=== PATIENT | female | born 1965 | race Caucasian/White ===

== ENCOUNTER 2018-11-22 08:08 | Day surgery (SDC) | payer OTHER ==
[2018-11-21 10:33] VITALS: BMI 20.6
[2018-11-22 10:35] VITALS: BP 118/68; PULSE 68; TEMP 98.3
== END 2018-11-22 10:36 | disposition home or self-care (01) ==
LOC: JASU-ENDO 08:08
PROVIDERS: ATTEND Internal Medicine Gastroenterology
PROC: 0DJD8ZZ Inspection of Lower Intestinal Tract, Via Natural or Artificial Opening Endoscopic (ICD-10-PCS; principal; 2018-11-22 09:00)
DX: Z12.11 Encounter for screening for malignant neoplasm of colon (principal); K57.30 Diverticulosis of large intestine without perforation or abscess without bleeding
CPT/HCPCS: 84703

== ENCOUNTER 2019-02-17 03:26 | Inpatient (IN) | payer OTHER ==
[2019-02-17 03:34] VITALS: BMI 20.7
--- NOTE | 2019-02-17 03:38 | PDOC ---
History of Present Illness - General Chief Complaint: Pain, Acute Stated Complaint: BLOATING,CRAMPING SINCE SUNDAY Time Seen by Provider: 02/17/19 03:34 History Source: Patient Exam Limitations: No Limitations - History of Present Illness Initial Comments: 02/17/19 03:34 53 yo F h/o diverticulosis here with c/o low abd pain, cramping, intermittent. pain with having a bm. no diarrhea. did have nausea, no f/c no urinary complaints. no prior abd surgeries. did have a routine colonoscopy one month ago , no flank pain. last bm today. Past History - Past Medical History Allergies/Adverse Reactions: Allergies Allergy/AdvReac Type Severity Reaction Status Date / Time Penicillins Allergy Verified 02/17/19 10:56 Home Medications: Ambulatory Orders Fluticasone/Vilanterol [Breo Ellipta 100-25 Mcg INH] 100 mcg DAILY 11/21/18 Sumatriptan Succinate [Imitrex -] 25 mg PO DAILY 11/21/18 Asthma: Yes (NO RECENT ATTACK) Cardiac Disorders: Yes (MVP) COPD: No GI Disorders: Yes (DIVERTICULOSIS, HIATAL HERNIA) - Suicide/Smoking/Psychosocial Hx Smoking Status: No Smoking History: Never smoked Have you smoked in the past 12 months: No Number of Cigarettes Smoked Daily: 0 Information on smoking cessation initiated: No Hx Alcohol Use: No Drug/Substance Use Hx: No Substance Use Type: None Hx Substance Use Treatment: No Review of Systems - Review of Systems Constitutional: No: Chills, Diaphoresis, Fever HEENTM: No: Eye Pain, Blurred Vision Respiratory: No: Cough, Orthopnea Cardiac (ROS): No: Chest Pain, Edema ABD/GI: Yes: Abd. Pain w/ defecation : No: Burning, Dysuria, Discharge Musculoskeletal: No: Back Pain, Gout Psychiatric: No: Frequent Crying, Stressors, Sleep Pattern Change All Other Systems: Reviewed and Negative *Physical Exam - Vital Signs Last Vital Signs Temp Pulse Resp BP Pulse Ox 98.8 F 95 H 16 134/77 100 02/17/19 03:31 02/17/19 03:31 02/17/19 03:31 02/17/19 03:31 02/17/19 03:31 - Physical Exam Comments: 02/17/19 03:36 awake alert NAD lungs ctab heart rrr no mrg abd soft mild rlq suprapubic ttp. positive rebound no guarding. no cva tenderness. skin warm and dry nuero alert oriented x 3. General Appearance: No: Appropriately Dressed, Apparent Distress ED Treatment Course - LABORATORY CBC & Chemistry Diagram: 02/18/19 06:15 02/18/19 06:15 Medical Decision Making - Medical Decision Making 02/17/19 03:37 53 yo F with lower abd pain , cramping and pain with bm. ttp on rlq on exam. differential constipation, ileitis, gas, appendicitis, divericulitis right sided ovarian cyst. plan ct a/p labs ua. *DC/Admit/Observation/Transfer Diagnosis at time of Disposition: Bowel perforation - Discharge Dispostion Condition at time of disposition: Stable Decision to Admit order: Yes - Referrals - Patient Instructions - Post Discharge Activity
[2019-02-17] MEDS ORDERED: SODIUM CHLORIDE 0.9% 1000 ML INFUS.BAG IV ONE (03:40)
[2019-02-17] MEDS ORDERED: ACETAMINOPHEN 1000 MG/100 ML VIAL (NON FORMULARY) IVPB ONE (04:07)
[2019-02-17 04:44] LABS: BASO % 0.4 % (0-2.0); EOS % 2.2 % (0-4.5); HEMATOCRIT 41.3 % (32.4-45.2); HEMOGLOBIN 13.9 GM/dL (10.7-15.3); LYMPH % 10.9 % (8-40); MCH 29.3 pg (25.7-33.7); MCHC 33.6 g/dl (32.0-36.0); MEAN CELL VOLUME 87.2 fl (80-96); MEAN PLT VOLUME 9.5 fl (7.5-11.1); NEUT % 80.5 % (42.8-82.8); PLATELET COUNT 167 K/MM3 (134-434); RBC 4.74 M/mm3 (3.60-5.2); RDW 13.4 % (11.6-15.6); WHITE BLOOD COUNT 10.6 K/mm3 (4.0-10.0)
[2019-02-17 04:54] LABS: EPITHELIAL CELLS RARE /hpf
[2019-02-17 04:55] LABS: ALBUMIN 4.3 g/dl (3.4-5.0); BILIRUBIN,TOTAL 1.5 mg/dL (0.2-1); BLOOD UREA NITROGEN 19.9 mg/dL (7-18); CALCIUM 9.3 mg/dL (8.5-10.1); CREATININE 0.9 mg/dL (0.55-1.3); POTASSIUM 3.8 mmol/L (3.5-5.1); TOT PROT 7.6 g/dl (6.4-8.2)
[2019-02-17] MEDS ORDERED: ONDANSETRON 4 MG/2 ML VIAL IVPUSH ONE (05:03)
[2019-02-17] MEDS ORDERED: ONDANSETRON 4 MG/2 ML VIAL ONE (05:03)
[2019-02-17] MEDS ORDERED: MEROPENEM 1 GM in DEXTROSE 5%-WATER 100 ML IVPB ONE (07:22)
--- NOTE | 2019-02-17 07:31 | PDOC ---
*Physical Exam - Vital Signs Last Vital Signs Temp Pulse Resp BP Pulse Ox 98.8 F 95 H 16 134/77 100 02/17/19 03:31 02/17/19 03:31 02/17/19 03:31 02/17/19 03:31 02/17/19 03:31 ED Treatment Course - LABORATORY CBC & Chemistry Diagram: 02/17/19 03:58 02/17/19 03:58 - ADDITIONAL ORDERS Additional order review: Laboratory Results 02/17/19 02/17/19 03:58 03:58 Sodium 140 Potassium 3.8 Chloride 105 Carbon Dioxide 31 Anion Gap 4 L BUN 19.9 H Creatinine 0.9 Est GFR (CKD-EPI)AfAm 83.43 Est GFR (CKD-EPI)NonAf 71.98 Random Glucose 82 Calcium 9.3 Total Bilirubin 1.5 H AST 24 ALT 27 Alkaline Phosphatase 59 Total Protein 7.6 Albumin 4.3 Urine Color Yellow Urine Appearance Clear Urine pH 5.5 Urine Protein N Urine Glucose (UA) Negative Urine Ketones Negative Urine Blood Negative Urine Nitrite Negative Urine Bilirubin Negative Urine Urobilinogen 0.02 Ur Leukocyte Esterase 1+ Urine RBC 0-2 Urine WBC 10-12 Ur Transition Epith Cell Rare Urine Bacteria Few 02/17/19 03:58 RBC 4.74 MCV 87.2 MCHC 33.6 RDW 13.4 MPV 9.5 Neutrophils % 80.5 D Lymphocytes % 10.9 D Monocytes % 6.0 Eosinophils % 2.2 Basophils % 0.4 - Medications Given in the ED: ED Medications Discontinued Medications Generic Name Dose Route Start Last Admin Trade Name Freq PRN Reason Stop Dose Admin Acetaminophen 1,000 mg 02/17/19 04:07 02/17/19 04:15 Ofirmev Injection - IVPB 02/17/19 04:08 1,000 mg ONCE ONE Administration Ondansetron HCl 4 mg 02/17/19 05:03 02/17/19 05:09 Zofran Injection IVPUSH 02/17/19 05:04 4 mg ONCE ONE Administration Sodium Chloride 1,000 ml 02/17/19 03:40 02/17/19 03:55 Normal Saline - IV 02/17/19 03:41 1,000 ml ONCE ONE Administration Medical Decision Making - Critical Care Time Total Critical Care Time (minutes): 60 Critical Care Statement: The care of this patient involved high complexity decision making to prevent further life threatening deterioration of the patient 's condition and/or to evaluate & treat vital organ system(s) failure or risk of failure. - Medical Decision Making 02/17/19 07:25 Sign out received from Dr. Claros at 7am Pt is 53 y/o F with h/o diverticulosis who presents to ED with 2 days of abdominal pain. CT read at 7:14 - shows free air, bowel perforation. ?sigmoid diverticulitis. Results communicated to Dr. Paige, who requests transfer to [facility] Will admit under Dr. Paige, to OR Meropenem ordered (pt is pen-allergic) *DC/Admit/Observation/Transfer Diagnosis at time of Disposition: Bowel perforation - Discharge Dispostion Condition at time of disposition: Stable Decision to Admit order: Yes - Referrals Referrals: Romario Edmond MD [Primary Care Provider] - - Patient Instructions - Post Discharge Activity - Attestations Physician Attestion: 02/17/19 08:05 I, Dr. Killian Martinez MD, attest that this document has been prepared under my direction and personally reviewed by me in its entirety. I further attest, that it accurately reflects all work, treatment, procedures and medical decision -making performed by me.
[2019-02-17] MEDS ORDERED: SODIUM CHLORIDE 1,000 ML IV SCH (07:45)
--- NOTE | 2019-02-17 12:18 | HP ---
Admitting History and Physical - Admission Chief Complaint: lower abdominal pain History of Present Illness: 53 yo female PMH Asthma on monotherarpy last attack 1 years ago, diverticulosis and chronic constipation here with complaints of lower abdominal pain, cramping , intermittent for 2 days. Pain started Sunday was worsening over Sunday and was reported to be much more severe with passing a bm. no diarrhea. did have nausea, no urinary complaints. no prior abdominal surgeries. She did have a routine colonoscopy one month ago, no flank pain. last bm today. We were called to assess after a CT scan showed pelvic pneumoperitonium. History Source: Patient, Medical Record Limitations to Obtaining History: No Limitations - Past Medical History Pulmonary: Yes: Asthma Gastrointestinal: Yes: Diverticulosis - Advance Directives Advance Directives: Yes: Health Care Proxy - Smoking History Smoking history: Never smoked Have you smoked in the past 12 months: No Aproximately how many cigarettes per day: 0 - Alcohol/Substance Use Hx Alcohol Use: No History of Substance Use: reports: None - Social History Usual Living Arrangement: Yes: With Spouse ADL: Independent History of Recent Travel: No Home Medications - Allergies Allergies/Adverse Reactions: Allergies Allergy/AdvReac Type Severity Reaction Status Date / Time Penicillins Allergy Verified 02/17/19 10:56 - Home Medications Home Medications: Ambulatory Orders Fluticasone/Vilanterol [Breo Ellipta 100-25 Mcg INH] 100 mcg DAILY 11/21/18 Sumatriptan Succinate [Imitrex -] 25 mg PO DAILY 11/21/18 Review of Systems - Review of Systems Constitutional: denies: Chills, Fever Eyes: denies: Blurred Vision, Recent Change in Vision HENT: denies: Difficult Swallowing, Throat Pain Neck: denies: Decreased ROM, Tenderness Cardiovascular: denies: Chest Pain, Palpitations Respiratory: denies: Cough, SOB Gastrointestinal: reports: Abdominal Pain, Constipation. denies: Bloating, Diarrhea, Dysphagia Genitourinary: denies: Burning, Discharge, Dysuria Breasts: reports: No Symptoms Reported. denies: Pain, Skin Changes Musculoskeletal: denies: Back Pain, Muscle Pain Integumentary: denies: Change in Color, Eczema, Pruritis Neurological: denies: Seizure, Syncope Endocrine: denies: Unexplained Weight Gain, Unexplained Weight Loss Hematology/Lymphatic: denies: Easily Bruised, Excessive Bleeding Psychiatric: denies: Anxiety, Depression Physical Examination Vital Signs: Vital Signs Temperature 98.2 F 02/17/19 10:44 Pulse Rate 94 H 02/17/19 10:44 Respiratory Rate 16 02/17/19 10:44 Blood Pressure 113/48 L 02/17/19 10:44 O2 Sat by Pulse Oximetry (%) 100 02/17/19 10:40 Constitutional: Yes: Well Nourished, No Distress, Calm Eyes: Yes: Conjunctiva Clear, EOM Intact HENT: Yes: Atraumatic, Normocephalic Neck: Yes: Supple, Trachea Midline Cardiovascular: Yes: Regular Rate and Rhythm, S1, S2 Respiratory: Yes: Regular, CTA Bilaterally Gastrointestinal: Yes: Normal Bowel Sounds, Soft, Tenderness, Tenderness, Rebound. No: Distention, Palpable Mass, Tenderness, Epigastrium ...Rectal Exam: Yes: Sphincter Tone Normal. No: Hemorrhoids/External, Mass Renal/: No: CVA Tenderness - Left, CVA Tenderness - Right Breast(s): No: Discharge from Nipple, Nipple Inversion Musculoskeletal: No: Muscle Pain, Muscle Weakness Extremities: No: Cool, Cyanosis Edema: No Peripheral Pulses WNL: Yes Peripheral Pulses: Left Radial: 2+, Right Radial: 2+, Left Doralis Pedis: 2+, Right Dorsalis Pedis: 2+, Left Femoral: 2+, Right Femoral: 2+ Integumentary: No: Jaundice, Laceration Neurological: Yes: Alert, Oriented Psychiatric: Yes: Alert, Oriented Labs: CBC, BMP 02/17/19 03:58 02/17/19 03:58 Imaging - Results Cat Scan: Report Reviewed, Image Reviewed (bubles of extraluminal gas) EKG: Report Reviewed, Image Reviewed Problem List - Problems (1) Intra-abdominal free air of unknown etiology Assessment/Plan: 53yo with free air on imaging and lower abdominal pain with early peritonitus and history of diverticulosis on screening colonoscopy NPO and IVF hydration IV antibiotucs ID consult OR for Exploratory lapartomy, possible bowel ressection, possible ostomy, possible omental patch Discussed with patient risks, benefits and alternatives of aforemention procedure, including but not limited to bleeding, infection, injury to adjacent structures, leak or injury, intraabdominal abscess, incisional hernia, need for further procedures, ; alternatives include antibiotics, delayed or no surgery - risks of this include failure of nonoperative therapy, perforation, sepsis, recurrence, . Patient desires to proceed with operation - will take to OR for above. Informed consent signed for same. Code(s): K66.8 - OTHER SPECIFIED DISORDERS OF PERITONEUM (2) Abdominal pain in female Code(s): R10.9 - UNSPECIFIED ABDOMINAL PAIN (3) Asthma Code(s): J45.909 - UNSPECIFIED ASTHMA, UNCOMPLICATED Qualifiers: Asthma severity: mild Asthma persistence: intermittent Asthma complication type: uncomplicated Qualified Code(s): J45.20 - Mild intermittent asthma, uncomplicated (4) Leukocytosis Code(s): D72.829 - ELEVATED WHITE BLOOD CELL COUNT, UNSPECIFIED Qualifiers: Leukocytosis type: bandemia Qualified Code(s): D72.825 - Bandemia (5) Diverticulosis Code(s): K57.90 - DVRTCLOS OF INTEST, PART UNSP, W/O PERF OR ABSCESS W/O BLEED
[2019-02-17] MEDS ORDERED: morphine CARPU-JECT 2 MG/1 ML DISP.SYRIN IVPUSH PRN (12:37)
[2019-02-17] MEDS ORDERED: ALBUTEROL SO4 0.083% IH SOL 2.5 MG/3 ML VIAL.NEB. NEB PRN ×2 (12:37→17:14)
[2019-02-17] MEDS ORDERED: ONDANSETRON 4 MG/2 ML VIAL IVPUSH PRN ×3 (12:37→15:43)
--- NOTE | 2019-02-17 12:37 | OP ---
Operative Note - Note: Operative Date: 02/17/19 Pre-Operative Diagnosis: perforated viscus Operation: maria elena's procedure Findings: stercoral erosion mid sigmoid anti-mesenteric boarder 3cm, end colostomy fashioned Post-Operative Diagnosis: Other (Stercoral erosion anti-mesenteric) Surgeon: Carlos aPige Diver Tender: Favian Lino Anesthesiologist/YARD COUPLER: Claudia De León Anesthesia: General Estimated Blood Loss (mls): 50 Fluid Volume Replaced (mls): 1,200 (crystalloid ) Operative Report Dictated: Yes
[2019-02-17] MEDS ORDERED: LACTATED RINGERS SOLUTION 1,000 ML IV SCH ×2 (12:45→15:45)
[2019-02-17 12:54] LABS: INR 1.1 (0.83-1.09)
[2019-02-17] MEDS ORDERED: PIPERACILLIN/TAZOB 4.5 GM 4.5 GM in DEXTROSE 5%-WATER 100 ML IVPB ONE (13:00)
[2019-02-17] MEDS ORDERED: diphenhydrAMINE HCL 25 MG CAPSULE (FP) PO PRN ×2 (14:18→17:14)
[2019-02-17] MEDS ORDERED: fentaNYL CITRATE 250 MCG/5 ML VIAL ONE (14:22)
[2019-02-17] MEDS ORDERED: PROPOFOL 20 ML ONE ×2 (14:22)
[2019-02-17] MEDS ORDERED: SUCCINYLCHOLINE CHLORIDE 200 MG/10 ML SYRINGE ONE ×2 (14:22)
[2019-02-17] MEDS ORDERED: ROCURONIUM BROMIDE 50 MG/5 ML SYRINGE ONE (14:23)
[2019-02-17] MEDS ORDERED: LIDOCAINE HCL/PF 2% SDV 5ML VIAL ONE (14:23)
[2019-02-17] MEDS ORDERED: HYDROmorphone HCl 2 MG/ML VIAL ONE ×3 (15:03)
[2019-02-17] MEDS ORDERED: DEXAMETHASONE SOD PHOSPHATE 4 MG/1 ML VIAL ONE (15:17)
--- NOTE | 2019-02-17 15:17 | EKG ---
Test Reason : Blood Pressure : / mmHG Vent. Rate : 077 BPM Atrial Rate : 077 BPM P-R Int : 120 ms QRS Dur : 086 ms QT Int : 408 ms P-R-T Axes : 039 062 062 degrees QTc Int : 461 ms NORMAL SINUS RHYTHM NORMAL ECG NO PREVIOUS ECGS AVAILABLE Confirmed by PRISCILLA STAUFFER MD ([id number]) on 02/17/2019 3:16:36 PM Referred By: Confirmed By:PRISCILLA STAUFFER MD
[2019-02-17] MEDS ORDERED: NEOSTIGMINE METHYLSULFATE 0.5 MG/ML - 10 ML MDV ONE (15:28)
[2019-02-17] MEDS ORDERED: PROMETHAZINE HCL 25 MG/1 ML VIAL IVPUSH PRN (15:41)
[2019-02-17] MEDS ORDERED: GLYCOPYRROLATE 0.2 MG/1 ML VIAL ONE (16:08)
[2019-02-17] MEDS ORDERED: HYDROmorphone *PCA* 10MG/50ML DISP.SYRIN ONE (17:01)
[2019-02-17] MEDS: LACTATED RINGERS SOLUTION 1,000 ML/1,000 ML INFUS.BAG IV SCH (17:30)
[2019-02-17] MEDS: HYDROmorphone *PCA* 10MG/50ML DISP.SYRIN IV SCH (17:30)
[2019-02-18] MEDS ORDERED: ONDANSETRON 4 MG/2 ML VIAL ONE (07:36)
[2019-02-18 07:49] LABS: HEMATOCRIT 36.6 % (32.4-45.2); HEMOGLOBIN 12.4 GM/dL (10.7-15.3); LYMPH % 3.4 % (8-40); MCH 29.1 pg (25.7-33.7); MEAN CELL VOLUME 85.7 fl (80-96); MEAN PLT VOLUME 9.4 fl (7.5-11.1); MONO % 5.8 % (3.8-10.2); NEUT % 90.8 % (42.8-82.8); PLATELET COUNT 127 K/MM3 (134-434); RBC 4.27 M/mm3 (3.60-5.2)
[2019-02-18] MEDS: HYDROmorphone *PCA* 10MG/50ML DISP.SYRIN IV SCH (08:01)
[2019-02-18 08:07] LABS: ALBUMIN 3.2 g/dl (3.4-5.0); BILIRUBIN,TOTAL 1.1 mg/dL (0.2-1); BLOOD UREA NITROGEN 12.2 mg/dL (7-18); CALCIUM 8.5 mg/dL (8.5-10.1); CREATININE 0.7 mg/dL (0.55-1.3); POTASSIUM 4.2 mmol/L (3.5-5.1); TOT PROT 6.2 g/dl (6.4-8.2)
[2019-02-18] MEDS: LACTATED RINGERS SOLUTION 1,000 ML/1,000 ML INFUS.BAG IV SCH ×2 (11:24→17:17)
[2019-02-18] MEDS: ONDANSETRON 4 MG/2 ML VIAL IVPUSH PRN ×2 (11:24→15:14)
--- NOTE | 2019-02-18 11:33 | PN ---
Progress Note, Physician Chief Complaint: Abdominal pain History of Present Illness: 53 yo female PMH Asthma on monotherarpy last attack 1 years ago, diverticulosis and chronic constipation here with complaints of lower abdominal pain, cramping , intermittent for 2 days. She has been stable post operatively. She has been expressing feeling upset about having the ostomy. - Current Medication List Current Medications: Active Medications Albuterol Sulfate (Ventolin 0.083% Nebulizer Soln -) 1 amp NEB Q6H PRN PRN Reason: SHORT OF BREATH/WHEEZING Diphenhydramine HCl (Benadryl -) 50 mg PO HS PRN PRN Reason: INSOMNIA Fentanyl (Sublimaze Injection -) 50 mcg IVPUSH [id number] PRN PRN Reason: PAIN-PACU ORDER X 4 DOSES ONLY Hydromorphone HCl (Hydromorphone 10 Mg/50 Ml-Ns) 10 mg IV PSYCHOLOGIST COUNSELING MARIN; Protocol Stop: 02/18/19 15:44 Last Admin: 02/18/19 08:01 Dose: Not Given Lactated Ringer's (Lactated Ringers Solution) 1,000 ml in 1,000 mls @ 125 mls/ hr IV ASDIR MARIN Last Admin: 02/18/19 11:24 Dose: 125 mls/hr Metronidazole (Flagyl 250mg Premixed Ivpb -) 250 mg in 50 mls @ 50 mls/hr IVPB Q8H-IV MARIN Last Admin: 02/18/19 07:59 Dose: Not Given Ondansetron HCl (Zofran Injection) 4 mg IVPUSH Q4H PRN PRN Reason: NAUSEA AND/OR VOMITING Last Admin: 02/18/19 11:24 Dose: 4 mg - Objective Vital Signs: Vital Signs Temperature 98.3 F 02/18/19 06:25 Pulse Rate 114 H 02/18/19 06:25 Respiratory Rate 20 02/18/19 06:25 Blood Pressure 130/72 02/18/19 06:25 O2 Sat by Pulse Oximetry (%) 99 02/17/19 19:10 Vital Signs Period Temp Pulse Resp BP Sys/Lombardi Pulse Ox Last 24 Hr 97.8 F-99.1 F 84-98 18-20 112-127/64-77 Intake & Output 02/18/19 02/19/19 02/19/19 23:59 07:59 15:59 Intake Total 300 Output Total 600 1550 Balance -300 -1550 Intake: IV 300 LACTATED RINGERS SOLUTION 300 1,000 ml In 1,000 ml @ 125 mls/hr IV [facility] Rx#:[id number] Output: Gastric Drainage 0 Urine 600 1550 Gupta 600 1550 Colostomy 0 Other: Voiding Method Indwelling Catheter Indwelling Catheter Constitutional: Yes: Well Nourished, No Distress, Calm Eyes: Yes: Conjunctiva Clear, EOM Intact HENT: Yes: Atraumatic, Normocephalic Neck: Yes: Supple, Trachea Midline Cardiovascular: Yes: Regular Rate and Rhythm, S1, S2 Respiratory: Yes: Regular, CTA Bilaterally Gastrointestinal: Yes: Normal Bowel Sounds, Soft, Tenderness (incisional), Other (colostomy). No: Distention ...Rectal Exam: Yes: Deferred Genitourinary: No: CVA Tenderness - Left, CVA Tenderness - Right Breast(s): No: Mass, Nipple Inversion Musculoskeletal: No: Muscle Pain, Muscle Weakness Extremities: No: Cool, Cyanosis Edema: No Peripheral Pulses WNL: Yes Peripheral Pulses: Left Radial: 2+, Right Radial: 2+, Left Doralis Pedis: 2+, Right Dorsalis Pedis: 2+, Left Femoral: 2+, Right Femoral: 2+ Wound/Incision: Yes: Clean/Dry, Well Approximated, Dressing Dry and Intact Neurological: Yes: Alert, Oriented Psychiatric: Yes: Alert, Oriented Labs: CBC, BMP 02/18/19 06:15 02/18/19 06:15 INR, PTT INR 1.10 (0.83-1.09) H 02/17/19 12:12 Problem List - Problems (1) Intra-abdominal free air of unknown etiology Assessment/Plan: 53yo with free air on imaging and lower abdominal pain with early peritonitus and history of diverticulosis on screening colonoscopy POD#1 s/p Nasreen's procedure for a stercoral perforation mid sigmoid with minimal contamination. I attempted to address her concerns and provide a time table for reversal of colostomy June 2019. continue NPO and IVF Physical therapy evaluation D/C gupta D/C ngt OOB encourage IS adequate pain control will follow Code(s): K66.8 - OTHER SPECIFIED DISORDERS OF PERITONEUM (2) Abdominal pain in female Code(s): R10.9 - UNSPECIFIED ABDOMINAL PAIN (3) Asthma Code(s): J45.909 - UNSPECIFIED ASTHMA, UNCOMPLICATED Qualifiers: Asthma severity: mild Asthma persistence: intermittent Asthma complication type: uncomplicated Qualified Code(s): J45.20 - Mild intermittent asthma, uncomplicated (4) Leukocytosis Code(s): D72.829 - ELEVATED WHITE BLOOD CELL COUNT, UNSPECIFIED Qualifiers: Leukocytosis type: bandemia Qualified Code(s): D72.825 - Bandemia (5) Diverticulosis Code(s): K57.90 - DVRTCLOS OF INTEST, PART UNSP, W/O PERF OR ABSCESS W/O BLEED
--- NOTE | 2019-02-18 13:58 | CON.ID ---
Consult Consult Specialty:: infectious diseases Referred by:: Reason for Consultation:: peritonitis,abd pain - History of Present Illness Chief Complaint: abd pain History of Present Illness: 53 yo female PMH Asthma, diverticulosis and chronic constipation admitted with complaints of lower abdominal pain, cramping, intermittent for 2 days. Pain started Sunday was worsening over Sunday and was reported to be much more severe with passing a bm. no diarrhea. did have nausea, no urinary complaints. no prior abdominal surgeries. She did have a routine colonoscopy one month ago, no flank pain. last bm today. patient was worked up found to have pneumoperitoneum patient was seen by surgery and patient and underwent surgery currently she has lot of abd pain but stable patient is c/o of lot of nausea - History Source History Provided By: Patient Limitations to Obtaining History: No Limitations - Past Medical History Pulmonary: Yes: Asthma Gastrointestinal: Yes: Diverticulosis - Alcohol/Substance Use Hx Alcohol Use: No History of Substance Use: reports: None - Smoking History Smoking history: Never smoked Have you smoked in the past 12 months: No Aproximately how many cigarettes per day: 0 - Social History ADL: Independent History of Recent Travel: No Home Medications - Allergies Allergies/Adverse Reactions: Allergies Allergy/AdvReac Type Severity Reaction Status Date / Time Penicillins Allergy Verified 02/17/19 10:56 - Home Medications Home Medications: Ambulatory Orders Fluticasone/Vilanterol [Breo Ellipta 100-25 Mcg INH] 100 mcg DAILY 11/21/18 Sumatriptan Succinate [Imitrex -] 25 mg PO DAILY 11/21/18 Review of Systems - Review of Systems Constitutional: reports: Other Eyes: reports: No Symptoms HENT: reports: No Symptoms Neck: reports: No Symptoms Cardiovascular: reports: No Symptoms Respiratory: reports: No Symptoms Gastrointestinal: reports: Abdominal Pain Genitourinary: reports: No Symptoms Breasts: reports: No Symptoms Reported Musculoskeletal: reports: No Symptoms Integumentary: reports: No Symptoms Neurological: reports: No Symptoms Endocrine: reports: No Symptoms Hematology/Lymphatic: reports: No Symptoms Psychiatric: reports: No Symptoms Physical Exam Vital Signs: Vital Signs Temperature 98.3 F 02/18/19 06:25 Pulse Rate 114 H 02/18/19 06:25 Respiratory Rate 20 02/18/19 06:25 Blood Pressure 130/72 02/18/19 06:25 O2 Sat by Pulse Oximetry (%) 99 02/17/19 19:10 Constitutional: Yes: Well Nourished, No Distress, Calm Eyes: Yes: Conjunctiva Clear HENT: Yes: Atraumatic, Normocephalic Neck: Yes: Supple, Trachea Midline Cardiovascular: Yes: Regular Rate and Rhythm Respiratory: Yes: Regular, CTA Bilaterally Gastrointestinal: Yes: Soft, Tenderness, Other (ng tube in place) Musculoskeletal: Yes: WNL Extremities: Yes: WNL Neurological: Yes: Alert, Oriented Psychiatric: Yes: Alert, Oriented Labs: CBC, BMP 02/18/19 06:15 02/18/19 06:15 Imaging - Results Chest X-ray: Report Reviewed, Image Reviewed Cat Scan: Report Reviewed, Image Reviewed Assessment/Plan Problem List - Problems (1) Intra-abdominal free air of unknown etiology Code(s): K66.8 - OTHER SPECIFIED DISORDERS OF PERITONEUM (2) Abdominal pain in female Code(s): R10.9 - UNSPECIFIED ABDOMINAL PAIN (3) Asthma Code(s): J45.909 - UNSPECIFIED ASTHMA, UNCOMPLICATED Qualifiers: Asthma severity: mild Asthma persistence: intermittent Asthma complication type: uncomplicated Qualified Code(s): J45.20 - Mild intermittent asthma, uncomplicated (4) Leukocytosis Code(s): D72.829 - ELEVATED WHITE BLOOD CELL COUNT, UNSPECIFIED Qualifiers: Leukocytosis type: bandemia Qualified Code(s): D72.825 - Bandemia (5) Diverticulosis Code(s): K57.90 - DVRTCLOS OF INTEST, PART UNSP, W/O PERF OR ABSCESS W/O BLEED plan abx npo hydration rest as per surgery monitor wbc
[2019-02-18] MEDS ORDERED: DEXTROSE 5%-WATER 100 ML IVPB ONE ×2 (15:08→17:37)
[2019-02-18] MEDS ORDERED: MEROPENEM 1 GM VIAL (RESTRICTED TO ID) IVPB ONE ×2 (15:08→17:37)
[2019-02-18] MEDS: MEROPENEM 1 GM in DEXTROSE 5%-WATER 100 ML IVPB SCH ×2 (15:25→18:11)
[2019-02-18] MEDS: ACETAMINOPHEN 1000 MG/100 ML VIAL (NON FORMULARY) IVPB PRN (17:43)
[2019-02-19] MEDS ORDERED: PT OWN MED DRAWER 7, Y5N ONE ×2 (02:10→21:27)
[2019-02-19] MEDS: MEROPENEM 1 GM in DEXTROSE 5%-WATER 100 ML IVPB SCH ×3 (02:17→18:04)
[2019-02-19] MEDS ORDERED: ACETAMINOPHEN 1000 MG/100 ML VIAL (NON FORMULARY) IVPB PRN (10:43)
[2019-02-19] MEDS ORDERED: BISACODYL 10 MG SUPP.RECT RC PRN (10:45)
[2019-02-19] MEDS ORDERED: MEROPENEM 1 GM VIAL (RESTRICTED TO ID) IVPB ONE ×2 (10:48→17:58)
[2019-02-19] MEDS ORDERED: DEXTROSE 5%-WATER 100 ML IVPB ONE ×2 (10:48→17:59)
--- NOTE | 2019-02-19 12:05 | PN ---
Progress Note, Physician History of Present Illness: stable feeling better - Current Medication List Current Medications: Active Medications Acetaminophen (Ofirmev Injection -) 1,000 mg IVPB Q6H PRN PRN Reason: PAIN LEVEL 1-5 Last Admin: 02/18/19 17:43 Dose: 1,000 mg Albuterol Sulfate (Ventolin 0.083% Nebulizer Soln -) 1 amp NEB Q6H PRN PRN Reason: SHORT OF BREATH/WHEEZING Bisacodyl (Dulcolax Suppository -) 10 mg RC DAILY PRN PRN Reason: CONSTIPATION Diphenhydramine HCl (Benadryl -) 50 mg PO HS PRN PRN Reason: INSOMNIA Fentanyl (Sublimaze Injection -) 50 mcg IVPUSH [id number] PRN PRN Reason: PAIN-PACU ORDER X 4 DOSES ONLY Lactated Ringer's (Lactated Ringers Solution) 1,000 ml in 1,000 mls @ 125 mls/ hr IV ASDIR MARIN Last Admin: 02/18/19 17:17 Dose: Not Given Meropenem 1 gm/ Dextrose 100 mls @ 200 mls/hr IVPB Q8H-IV MARIN Last Admin: 02/19/19 10:56 Dose: 200 mls/hr Ondansetron HCl (Zofran Injection) 4 mg IVPUSH Q4H PRN PRN Reason: NAUSEA AND/OR VOMITING Last Admin: 02/18/19 15:14 Dose: 4 mg - Objective Vital Signs: Vital Signs Temperature 98.2 F 02/19/19 06:53 Pulse Rate 93 H 02/19/19 06:53 Respiratory Rate 20 02/19/19 06:53 Blood Pressure 127/77 02/19/19 06:53 O2 Sat by Pulse Oximetry (%) 99 02/18/19 09:00 Constitutional: Yes: No Distress, Calm Cardiovascular: Yes: S1, S2 Respiratory: Yes: Regular, CTA Bilaterally Gastrointestinal: Yes: Soft, Hypoactive Bowel Sounds Musculoskeletal: Yes: WNL Extremities: Yes: WNL Neurological: Yes: Alert, Oriented Labs: CBC, BMP 02/18/19 06:15 02/18/19 06:15 INR, PTT INR 1.10 (0.83-1.09) H 02/17/19 12:12 Assessment/Plan Problem List - Problems (1) Intra-abdominal free air of unknown etiology Code(s): K66.8 - OTHER SPECIFIED DISORDERS OF PERITONEUM (2) Abdominal pain in female Code(s): R10.9 - UNSPECIFIED ABDOMINAL PAIN (3) Asthma Code(s): J45.909 - UNSPECIFIED ASTHMA, UNCOMPLICATED Qualifiers: Asthma severity: mild Asthma persistence: intermittent Asthma complication type: uncomplicated Qualified Code(s): J45.20 - Mild intermittent asthma, uncomplicated (4) Leukocytosis Code(s): D72.829 - ELEVATED WHITE BLOOD CELL COUNT, UNSPECIFIED Qualifiers: Leukocytosis type: bandemia Qualified Code(s): D72.825 - Bandemia (5) Diverticulosis Code(s): K57.90 - DVRTCLOS OF INTEST, PART UNSP, W/O PERF OR ABSCESS W/O BLEED plan abx hydration rest as per surgery monitor wbc
[2019-02-19] MEDS: ACETAMINOPHEN 1000 MG/100 ML VIAL (NON FORMULARY) IVPB PRN (12:12)
--- NOTE | 2019-02-19 12:46 | PN ---
Progress Note, Physician Chief Complaint: Abdominal pain History of Present Illness: 53 yo female PMH Asthma on monotherarpy last attack 1 years ago, diverticulosis and chronic constipation here with complaints of lower abdominal pain, cramping , intermittent for 2 days. She has been stable post operatively. She has been expressing feeling upset about having the ostomy. - Current Medication List Current Medications: Active Medications Acetaminophen (Ofirmev Injection -) 1,000 mg IVPB Q6H PRN PRN Reason: PAIN LEVEL 1-5 Last Admin: 02/19/19 12:12 Dose: 1,000 mg Albuterol Sulfate (Ventolin 0.083% Nebulizer Soln -) 1 amp NEB Q6H PRN PRN Reason: SHORT OF BREATH/WHEEZING Bisacodyl (Dulcolax Suppository -) 10 mg RC DAILY PRN PRN Reason: CONSTIPATION Diphenhydramine HCl (Benadryl -) 50 mg PO HS PRN PRN Reason: INSOMNIA Fentanyl (Sublimaze Injection -) 50 mcg IVPUSH [id number] PRN PRN Reason: PAIN-PACU ORDER X 4 DOSES ONLY Lactated Ringer's (Lactated Ringers Solution) 1,000 ml in 1,000 mls @ 125 mls/ hr IV ASDIR MARIN Last Admin: 02/18/19 17:17 Dose: Not Given Meropenem 1 gm/ Dextrose 100 mls @ 200 mls/hr IVPB Q8H-IV [facility] Last Admin: 02/19/19 10:56 Dose: 200 mls/hr Ondansetron HCl (Zofran Injection) 4 mg IVPUSH Q4H PRN PRN Reason: NAUSEA AND/OR VOMITING Last Admin: 02/18/19 15:14 Dose: 4 mg - Objective Vital Signs: Vital Signs Temperature 98.2 F 02/19/19 06:53 Pulse Rate 93 H 02/19/19 06:53 Respiratory Rate 20 02/19/19 06:53 Blood Pressure 127/77 02/19/19 06:53 O2 Sat by Pulse Oximetry (%) 99 02/18/19 09:00 Vital Signs Period Temp Pulse Resp BP Sys/Lombardi Pulse Ox Last 24 Hr 97.8 F-99.1 F 84-98 18-20 112-127/64-77 Intake & Output 02/18/19 02/19/19 02/19/19 23:59 07:59 15:59 Intake Total 300 Output Total 600 1550 Balance -300 -1550 Intake: IV 300 LACTATED RINGERS SOLUTION 300 1,000 ml In 1,000 ml @ 125 mls/hr IV ASDIR MARIN Rx#:[id number] Output: Gastric Drainage 0 Urine 600 1550 Gupta 600 1550 Colostomy 0 Other: Voiding Method Indwelling Catheter Indwelling Catheter Constitutional: Yes: Well Nourished, No Distress, Calm Eyes: Yes: Conjunctiva Clear, EOM Intact HENT: Yes: Atraumatic, Normocephalic Neck: Yes: Supple, Trachea Midline Cardiovascular: Yes: Regular Rate and Rhythm, S1, S2 Respiratory: Yes: Regular, CTA Bilaterally Gastrointestinal: Yes: Normal Bowel Sounds, Soft, Tenderness (incisional), Other (colostomy non functional) ...Rectal Exam: Yes: Deferred Genitourinary: No: CVA Tenderness - Left, CVA Tenderness - Right Breast(s): No: Breast Implants, Nipple Inversion Musculoskeletal: No: Joint Swelling, Muscle Pain Extremities: No: Cool, Cyanosis Edema: No Peripheral Pulses WNL: Yes Peripheral Pulses: Left Radial: 2+, Right Radial: 2+, Left Doralis Pedis: 2+, Right Dorsalis Pedis: 2+, Left Femoral: 2+, Right Femoral: 2+ Integumentary: No: Jaundice, Rash Wound/Incision: Yes: Clean/Dry, Well Approximated Neurological: Yes: Alert, Oriented Psychiatric: Yes: Alert, Oriented Labs: CBC, BMP 02/18/19 06:15 02/18/19 06:15 INR, PTT INR 1.10 (0.83-1.09) H 02/17/19 12:12 Problem List - Problems (1) Intra-abdominal free air of unknown etiology Assessment/Plan: 53yo with free air on imaging and lower abdominal pain with early peritonitus and history of diverticulosis on screening colonoscopy POD#2 s/p Nasreen's procedure for a stercoral perforation mid sigmoid with minimal contamination. I attempted to address her concerns and provide a time table for reversal of colostomy June 2019. continue NPO and IVF Physical therapy evaluation D/C gupta D/C ngt OOB encourage IS adequate pain control will follow Code(s): K66.8 - OTHER SPECIFIED DISORDERS OF PERITONEUM (2) Abdominal pain in female Code(s): R10.9 - UNSPECIFIED ABDOMINAL PAIN (3) Asthma Code(s): J45.909 - UNSPECIFIED ASTHMA, UNCOMPLICATED Qualifiers: Asthma severity: mild Asthma persistence: intermittent Asthma complication type: uncomplicated Qualified Code(s): J45.20 - Mild intermittent asthma, uncomplicated (4) Leukocytosis Code(s): D72.829 - ELEVATED WHITE BLOOD CELL COUNT, UNSPECIFIED Qualifiers: Leukocytosis type: bandemia Qualified Code(s): D72.825 - Bandemia (5) Diverticulosis Code(s): K57.90 - DVRTCLOS OF INTEST, PART UNSP, W/O PERF OR ABSCESS W/O BLEED
--- NOTE | 2019-02-19 14:28 | PN ---
Progress Note (short form) - Note Progress Note: Anesthesia/ Pain Pt seen and examined S:alert and awake O: Vital Signs Temperature 98.2 F 02/19/19 06:53 Pulse Rate 93 H 02/19/19 06:53 Respiratory Rate 20 02/19/19 06:53 Blood Pressure 127/77 02/19/19 06:53 O2 Sat by Pulse Oximetry (%) 99 02/18/19 09:00 CBC, BMP 02/18/19 06:15 02/18/19 06:15 A/P: Current Active Problems Abdominal pain in female (Acute) Asthma (Acute) Bowel perforation (Acute) Diverticulosis (Acute) Intra-abdominal free air of unknown etiology (Acute) Leukocytosis (Acute) s/p exploratory laparotomy. KISS MIXER discontinued due to N/V Continue with IV or PO pain meds. Leno German MD
[2019-02-19] MEDS: LACTATED RINGERS SOLUTION 1,000 ML/1,000 ML INFUS.BAG IV SCH (23:40)
[2019-02-20] MEDS ORDERED: MEROPENEM 1 GM VIAL (RESTRICTED TO ID) IVPB ONE ×3 (01:05→17:29)
[2019-02-20] MEDS ORDERED: DEXTROSE 5%-WATER 100 ML IVPB ONE ×3 (01:05→17:29)
[2019-02-20] MEDS: MEROPENEM 1 GM in DEXTROSE 5%-WATER 100 ML IVPB SCH ×3 (01:17→17:38)
[2019-02-20 08:26] LABS: HEMATOCRIT 35.3 % (32.4-45.2); MCH 29.1 pg (25.7-33.7); MCHC 33.9 g/dl (32.0-36.0); MEAN CELL VOLUME 85.7 fl (80-96); PLATELET COUNT 149 K/MM3 (134-434); RBC 4.12 M/mm3 (3.60-5.2); RDW 12.9 % (11.6-15.6); WHITE BLOOD COUNT 6.1 K/mm3 (4.0-10.0)
--- NOTE | 2019-02-20 15:22 | PN ---
Progress Note, Physician - Current Medication List Current Medications: Active Medications Acetaminophen (Ofirmev Injection -) 1,000 mg IVPB Q6H PRN PRN Reason: PAIN LEVEL 1-5 Last Admin: 02/19/19 12:12 Dose: 1,000 mg Albuterol Sulfate (Ventolin 0.083% Nebulizer Soln -) 1 amp NEB Q6H PRN PRN Reason: SHORT OF BREATH/WHEEZING Bisacodyl (Dulcolax Suppository -) 10 mg RC DAILY PRN PRN Reason: CONSTIPATION Diphenhydramine HCl (Benadryl -) 50 mg PO HS PRN PRN Reason: INSOMNIA Fentanyl (Sublimaze Injection -) 50 mcg IVPUSH [id number] PRN PRN Reason: PAIN-PACU ORDER X 4 DOSES ONLY Lactated Ringer's (Lactated Ringers Solution) 1,000 ml in 1,000 mls @ 125 mls/ hr IV ASDIR MARIN Last Admin: 02/19/19 23:40 Dose: 125 mls/hr Meropenem 1 gm/ Dextrose 100 mls @ 200 mls/hr IVPB Q8H-IV [facility] Last Admin: 02/20/19 11:47 Dose: 200 mls/hr Ondansetron HCl (Zofran Injection) 4 mg IVPUSH Q4H PRN PRN Reason: NAUSEA AND/OR VOMITING Last Admin: 02/18/19 15:14 Dose: 4 mg - Objective Vital Signs: Vital Signs Temperature 98.2 F 02/20/19 07:27 Pulse Rate 77 02/20/19 07:27 Respiratory Rate 20 02/20/19 07:27 Blood Pressure 118/72 02/20/19 07:27 O2 Sat by Pulse Oximetry (%) 99 02/19/19 21:00 Labs: CBC, BMP 02/20/19 07:27 02/18/19 06:15 INR, PTT INR 1.10 (0.83-1.09) H 02/17/19 12:12
--- NOTE | 2019-02-20 16:46 | PATH ---
Surgical Pathology Report Patient Name: MARTA BROWN Med. Rec. #: [id number] /Age/Gender: 1965 (Age: 53) / F Account: [id number] Location: [facility] MED/SURG Taken: 02/17/2019 Received: 02/18/2019 Reported: 02/20/2019 Physicians: Rosalio Jones M.D. Specimen(s) Received PORTION OF SIGMOID COLON Clinical History Perforated bowel Final Diagnosis PORTION OF SIGMOID COLON, RESECTION: SEGMENT OF COLON SHOWING MUCOSAL EROSION, TRANSMURAL SEVERE ACUTE AND CHRONIC INFLAMMATION, NECROSIS, AND MARKED THINNING OF COLONIC WALL, IN ASSOCIATION WITH FECALOMA. SEE COMMENT. MARKED ACUTE SEROSITIS. VIABLE MARGINS. Comment: Findings are consistent with stercoral colitis with transmural acute inflammation. Electronically Signed Wilma Calderon M.D. Gross Description Received in formalin labeled "portion of sigmoid colon," is a 10 cm in length portion of bowel with 2 undesignated, stapled mucosal margins and moderate attached fat. The serosa is marie valerio with focal possible exudate. No discrete rupture site is identified. The bowel lumen contains abundant impacted fecal material. The mucosa is marie with diffusely flattened folds. No mucosal masses are identified. Sectioning reveals a markedly thin bowel wall. Environmental Engineering Aide sections are submitted in 7 cassettes as follows: 8-0-rosqgohavywm stapled mucosal margins; 1-5-wnfoejkx from possible serosal exudate; 3-0-upzqszqruijvas bowel. /02/18/2019 saudi/02/18/2019
[2019-02-21] MEDS: LACTATED RINGERS SOLUTION 1,000 ML/1,000 ML INFUS.BAG IV SCH
[2019-02-21] MEDS ORDERED: DEXTROSE 5%-WATER 100 ML IVPB ONE ×3 (00:11→20:00)
[2019-02-21] MEDS ORDERED: MEROPENEM 1 GM VIAL (RESTRICTED TO ID) IVPB ONE ×3 (00:11→19:59)
[2019-02-21] MEDS: MEROPENEM 1 GM in DEXTROSE 5%-WATER 100 ML IVPB SCH ×3 (02:27→20:03)
--- NOTE | 2019-02-21 06:38 | PN ---
Progress Note, Physician Chief Complaint: Abdominal pain History of Present Illness: 53 yo female PMH Asthma on monotherarpy last attack 1 years ago, diverticulosis and chronic constipation here with complaints of lower abdominal pain, cramping , intermittent for 2 days. She has been stable post operatively. She has been expressing feeling upset about having the ostomy. - Current Medication List Current Medications: Active Medications Acetaminophen (Ofirmev Injection -) 1,000 mg IVPB Q6H PRN PRN Reason: PAIN LEVEL 1-5 Last Admin: 02/19/19 12:12 Dose: 1,000 mg Albuterol Sulfate (Ventolin 0.083% Nebulizer Soln -) 1 amp NEB Q6H PRN PRN Reason: SHORT OF BREATH/WHEEZING Bisacodyl (Dulcolax Suppository -) 10 mg RC DAILY PRN PRN Reason: CONSTIPATION Diphenhydramine HCl (Benadryl -) 50 mg PO HS PRN PRN Reason: INSOMNIA Fentanyl (Sublimaze Injection -) 50 mcg IVPUSH [id number] PRN PRN Reason: PAIN-PACU ORDER X 4 DOSES ONLY Lactated Ringer's (Lactated Ringers Solution) 1,000 ml in 1,000 mls @ 125 mls/ hr IV ASDIR MARIN Last Admin: 02/21/19 00:00 Dose: 125 mls/hr Meropenem 1 gm/ Dextrose 100 mls @ 200 mls/hr IVPB Q8H-IV MARIN Last Admin: 02/21/19 02:27 Dose: 200 mls/hr Ondansetron HCl (Zofran Injection) 4 mg IVPUSH Q4H PRN PRN Reason: NAUSEA AND/OR VOMITING Last Admin: 02/18/19 15:14 Dose: 4 mg - Objective Vital Signs: Vital Signs Temperature 98.9 F 02/20/19 22:00 Pulse Rate 64 02/20/19 22:00 Respiratory Rate 18 02/20/19 22:00 Blood Pressure 140/78 02/20/19 22:00 O2 Sat by Pulse Oximetry (%) 96 02/20/19 21:00 Vital Signs Period Temp Pulse Resp BP Sys/Lombardi Pulse Ox Last 24 Hr 98.2 F-99.2 F 64-88 18-20 118-140/64-78 96-99 Intake & Output 0602/20/19 02/21/19 15:59 23:59 07:59 Intake Total 1600 1500 Output Total 950 0 Balance 650 0 1500 Intake: IV 1500 1450 LACTATED RINGERS SOLUTION 1500 1450 1,000 ml In 1,000 ml @ 125 mls/hr IV ASDIR MARIN Rx#:[id number] IVPB 100 50 Output: Gastric Drainage 0 Urine 950 Noriega 550 Void 400 Colostomy 0 0 Other: Voiding Method Bedpan Toilet # Unmeasured Voids Void 1 1 Bowel Movement No No Constitutional: Yes: Well Nourished, No Distress, Calm Eyes: Yes: Conjunctiva Clear, EOM Intact HENT: Yes: Atraumatic, Normocephalic Neck: Yes: Supple, Trachea Midline Cardiovascular: Yes: Regular Rate and Rhythm, S1, S2 Respiratory: Yes: Regular, CTA Bilaterally Gastrointestinal: Yes: Normal Bowel Sounds, Soft, Other (colostomy viable and functional) ...Rectal Exam: Yes: Deferred Genitourinary: No: CVA Tenderness - Left, CVA Tenderness - Right Musculoskeletal: No: Muscle Pain, Muscle Weakness Extremities: No: Cool, Cyanosis Edema: No Peripheral Pulses WNL: Yes Peripheral Pulses: Left Radial: 2+, Right Radial: 2+, Left Doralis Pedis: 2+, Right Dorsalis Pedis: 2+, Left Femoral: 2+, Right Femoral: 2+ Integumentary: No: Incision, Jaundice Wound/Incision: Yes: Clean/Dry, Well Approximated, [place] Intact, Open to air Neurological: Yes: Alert, Oriented Psychiatric: Yes: Alert, Oriented Labs: CBC, BMP 02/20/19 07:27 02/18/19 06:15 INR, PTT INR 1.10 (0.83-1.09) H 02/17/19 12:12 Problem List - Problems (1) Intra-abdominal free air of unknown etiology Assessment/Plan: 53yo with free air on imaging and lower abdominal pain with early peritonitus and history of diverticulosis on screening colonoscopy POD#4 s/p Nasreen's procedure for a stercoral perforation mid sigmoid with minimal contamination. Gas no in colostomy. full liquid for breakfast regular diet by dinne ostomy teaching nutrition consult Physical therapy evaluation encourage IS and OOB adequate pain control will follow Code(s): K66.8 - OTHER SPECIFIED DISORDERS OF PERITONEUM (2) Abdominal pain in female Code(s): R10.9 - UNSPECIFIED ABDOMINAL PAIN (3) Asthma Code(s): J45.909 - UNSPECIFIED ASTHMA, UNCOMPLICATED Qualifiers: Asthma severity: mild Asthma persistence: intermittent Asthma complication type: uncomplicated Qualified Code(s): J45.20 - Mild intermittent asthma, uncomplicated (4) Leukocytosis Code(s): D72.829 - ELEVATED WHITE BLOOD CELL COUNT, UNSPECIFIED Qualifiers: Leukocytosis type: bandemia Qualified Code(s): D72.825 - Bandemia (5) Diverticulosis Code(s): K57.90 - DVRTCLOS OF INTEST, PART UNSP, W/O PERF OR ABSCESS W/O BLEED
[2019-02-21] MEDS ORDERED: SENNOSIDES 8.6MG TABLET (FP) PO PRN (06:56)
[2019-02-21] MEDS ORDERED: ACETAMINOPHEN 325 MG TABLET (FP) PO PRN (07:00)
[2019-02-21] MEDS ORDERED: IBUPROFEN 600 MG TABLET (FP) PO PRN (07:00)
[2019-02-21] MEDS ORDERED: morphine CARPU-JECT 2 MG/1 ML DISP.SYRIN IVPUSH PRN (07:01)
[2019-02-21] MEDS ORDERED: MORPHINE SULFATE 2 MG/ML VIAL IVPUSH PRN (07:07)
[2019-02-21] MEDS: AMINO ACIDS/PROTEIN HYDROLYS 30 ML LIQUID.PKT PO SCH ×2 (08:52→18:18)
[2019-02-21] MEDS: DOCUSATE SODIUM 100 MG CAPSULE (FP) PO SCH ×3 (08:52→21:22)
[2019-02-21] MEDS: D5-1/2NS+20 MEQ KCL - 20 MEQ/1,000 ML INFUS.BAG IV SCH ×2 (09:47→21:27)
--- NOTE | 2019-02-21 09:50 | OP ---
DATE OF OPERATION: 02/17/2019 PREOPERATIVE DIAGNOSIS: Perforated viscus. POSTOPERATIVE DIAGNOSIS: Stercoral perforation antimesenteric border at the sigmoid colon. PROCEDURE: Exploratory laparotomy, end-colostomy, a Hartmanns procedure. ATTENDING SURGEON: Carlos Paige MD MANAGER SAS: Favian Lino MD ANESTHESIOLOGIST: Claudia De León MD ANESTHESIA TYPE: General. ESTIMATED BLOOD LOSS: 50 mL. INTRAVENOUS FLUID ADMINISTERED: Crystalloid, 1200 mL. Noriega catheter was left at the end as well as a colostomy in the left lower quadrant. BRIEF FINDINGS: There was a stercoral erosion of the mid sigmoid antimesenteric border approximately 3 cm in largest diameter. An end-colostomy was fashioned brooking the 4 corners. INDICATIONS: Patient is a 53-year-old female presenting with acute onset of abdominal pain for 2 days, worsening focal to the lower quadrants bilaterally. She had a mild leukocytosis. CT scan revealed extraluminal air in the region of the sigmoid colon and upper abdomen. She was counseled regarding risks, benefits, and alternatives to surgical exploration. She signed informed consent. She was taken for the procedure. DESCRIPTION OF PROCEDURE: The patient was brought to the operating room. She was placed in supine position on the operating table. The lower extremities had SCDs placed for compression. The patient was induced with general anesthesia, endotracheally intubated. The anterior abdominal wall was clipped, prepped, and draped in standard surgical fashion. We began first with both arms extended at 90 degrees perpendicular to the bodys axis. A formal time-out was completed identifying the operative site and procedure with all parties in agreement. We began first with a midline approach, contouring the umbilical region for a full abdominal exploration. It was incised with a 10-blade scalpel, deepened and widened through the subcutaneous tissue with Bovie cautery to the midline raphe of the rectus muscles. Upon entering the abdomen, this was done carefully with a finger protecting the abdominal viscera. There did appear to be some dilation and distention of the small intestine. She was eviscerated, and the small intestine was run from the ligament of Treitz to the ileocecal valve. There did not appear to be identified pathology immediately. We then turned our attention to the colon. The ascending colon and appendix were identified, appeared to be non-pathologic. The transverse colon and omentum appeared to be without findings, and the mid-sigmoid was identified to have a purple colored erosion on the antimesenteric border mid length on the sigmoid. This was followed down into the rectum, and there were no additional spots identified. With this bowel ischemic area identified, we turned our attention to first inspecting the stomach which appeared grossly normal. The gallbladder and liver also appeared to be grossly normal, and there was no peritoneal fluid that was suspicious. Peritoneal culture was sent from the area in the vicinity of the sigmoid finding. We then turned our attention to assessing the sigmoid in greater detail. The sigmoid was eviscerated, and the small intestine was protected in a moist lap pad. I decided to resect the mid portion of the sigmoid. A YESICA stapler size 60 mm was guided through a rent in the mesentery which was created with a clamp, and transection was made distally letting the distal upper rectal sigmoid remnant fall into the pelvis after it was marked with 0 Prolene stitches at both corner at the staple line. After retracting into the pelvis, we then turned our attention to following the sigmoid along its mesentery proximally. It was carried back, and a small segment of the sigmoid was sent after YESICA stapler was fired just proximal to the erosion. The erosion appeared to be approximately 3 cm and appeared to be transmural. The specimen of sigmoid was sent for pathologic diagnosis and confirmation of a stercoral perforation. This was an intraoperative diagnosis as there was a large fecaloma, which was hard , associated with this sigmoid defect. We turned our attention then to fashioning a colostomy. An area which had been marked preoperatively for colostomy and ileostomy was selected at the skin and a small disc of skin was removed. A cruciate incision was made through the fascia, and then, the end of the colon was guided through and through the skin and fastened to the skin. The patient then had the abdomen irrigated thoroughly with 2 L of sterile irrigation fluid, the abdominal viscera was returned to its [place] position, and the midline was closed with No. 1 looped PDS from the superior and inferior poles of the exploration incision. This was done and tied at the center, the knot was buried, and the skin was closed with vinod. We then took our time to mature the colostomy at the skin. It was brooked at the cardinal points at north, south, east, and west, and then, fastened to the skin with 3-0 Vicryl. With this done, the colostomy bag appliance 47 mm was applied to the skin, patients skin was cleaned, and sterile dressings were placed. The patient was awoken from anesthesia having tolerated the procedure well. She was returned to recovery in stable condition. MD MALIK Jones/[id number]
--- NOTE | 2019-02-21 13:20 | PN ---
Progress Note, Physician History of Present Illness: stable doing well no complaints - Current Medication List Current Medications: Active Medications Acetaminophen (Tylenol -) 650 mg PO Q6H PRN PRN Reason: PAIN LEVEL 1-5 Albuterol Sulfate (Ventolin 0.083% Nebulizer Soln -) 1 amp NEB Q6H PRN PRN Reason: SHORT OF BREATH/WHEEZING Amino Acids (Prosource No Carb Liquid Pkt) 30 ml PO BID@0800,1730 [facility] Last Admin: 02/21/19 08:52 Dose: 30 ml Bisacodyl (Dulcolax Suppository -) 10 mg RC DAILY PRN PRN Reason: CONSTIPATION Diphenhydramine HCl (Benadryl -) 50 mg PO HS PRN PRN Reason: INSOMNIA Docusate Sodium (Colace -) 100 mg PO TID [facility] Last Admin: 02/21/19 08:52 Dose: 100 mg Meropenem 1 gm/ Dextrose 100 mls @ 200 mls/hr IVPB Q8H-IV [facility] Last Admin: 02/21/19 09:47 Dose: 200 mls/hr Potassium Chloride/Dextrose/Sod Cl (D5-1/2ns+20 Meq Kcl -) 20 meq in 1,000 mls @ 83 mls/hr IV ASDIR [facility] Last Admin: 02/21/19 09:47 Dose: 83 mls/hr Ibuprofen (Motrin -) 600 mg PO Q6H PRN PRN Reason: PAIN LEVEL 1-5 Morphine Sulfate (Morphine Sulfate) 2 mg IVPUSH ONCE PRN PRN Reason: PAIN LEVEL 7 - 10 Ondansetron HCl (Zofran Injection) 4 mg IVPUSH Q4H PRN PRN Reason: NAUSEA AND/OR VOMITING Last Admin: 02/18/19 15:14 Dose: 4 mg Senna (Senna -) 2 tab PO HS PRN PRN Reason: CONSTIPATION - Objective Vital Signs: Vital Signs Temperature 98.2 F 02/21/19 06:51 Pulse Rate 72 02/21/19 06:51 Respiratory Rate 18 02/21/19 06:51 Blood Pressure 120/68 02/21/19 06:51 O2 Sat by Pulse Oximetry (%) 96 02/20/19 21:00 Constitutional: Yes: No Distress, Calm Cardiovascular: Yes: Regular Rate and Rhythm Respiratory: Yes: Regular, CTA Bilaterally Gastrointestinal: Yes: Normal Bowel Sounds, Soft Musculoskeletal: Yes: WNL Extremities: Yes: WNL Neurological: Yes: Alert, Oriented Psychiatric: Yes: Alert, Oriented Labs: CBC, BMP 02/20/19 07:27 02/18/19 06:15 INR, PTT INR 1.10 (0.83-1.09) H 02/17/19 12:12 Assessment/Plan Problem List - Problems (1) Intra-abdominal free air of unknown etiology Code(s): K66.8 - OTHER SPECIFIED DISORDERS OF PERITONEUM (2) Abdominal pain in female Code(s): R10.9 - UNSPECIFIED ABDOMINAL PAIN (3) Asthma Code(s): J45.909 - UNSPECIFIED ASTHMA, UNCOMPLICATED Qualifiers: Asthma severity: mild Asthma persistence: intermittent Asthma complication type: uncomplicated Qualified Code(s): J45.20 - Mild intermittent asthma, uncomplicated (4) Leukocytosis Code(s): D72.829 - ELEVATED WHITE BLOOD CELL COUNT, UNSPECIFIED Qualifiers: Leukocytosis type: bandemia Qualified Code(s): D72.825 - Bandemia (5) Diverticulosis Code(s): K57.90 - DVRTCLOS OF INTEST, PART UNSP, W/O PERF OR ABSCESS W/O BLEED plan abx hydration rest as per surgery once patient tolerates diet will deescalte abx rest as per the team
[2019-02-22] MEDS ORDERED: MEROPENEM 1 GM VIAL (RESTRICTED TO ID) IVPB ONE ×3 (00:24→17:37)
[2019-02-22] MEDS ORDERED: DEXTROSE 5%-WATER 100 ML IVPB ONE ×3 (00:25→17:37)
[2019-02-22] MEDS: MEROPENEM 1 GM in DEXTROSE 5%-WATER 100 ML IVPB SCH ×3 (02:22→18:18)
[2019-02-22] MEDS: DOCUSATE SODIUM 100 MG CAPSULE (FP) PO SCH ×3 (05:53→22:20)
[2019-02-22 07:45] LABS: BASO % 0.8 % (0-2.0); EOS % 5.4 % (0-4.5); HEMATOCRIT 38.4 % (32.4-45.2); HEMOGLOBIN 13.1 GM/dL (10.7-15.3); LYMPH % 19.9 % (8-40); MCH 28.9 pg (25.7-33.7); MEAN CELL VOLUME 84.9 fl (80-96); MEAN PLT VOLUME 8.7 fl (7.5-11.1); MONO % 9.5 % (3.8-10.2); NEUT % 64.4 % (42.8-82.8); PLATELET COUNT 196 K/MM3 (134-434); RBC 4.53 M/mm3 (3.60-5.2); RDW 12.7 % (11.6-15.6); WHITE BLOOD COUNT 5.7 K/mm3 (4.0-10.0)
[2019-02-22 08:14] LABS: ALBUMIN 2.9 g/dl (3.4-5.0); BILIRUBIN,TOTAL 1.2 mg/dL (0.2-1); BLOOD UREA NITROGEN 14.2 mg/dL (7-18); CALCIUM 8.4 mg/dL (8.5-10.1); CREATININE 0.6 mg/dL (0.55-1.3); POTASSIUM 3.9 mmol/L (3.5-5.1); TOT PROT 6.2 g/dl (6.4-8.2)
[2019-02-22] MEDS: AMINO ACIDS/PROTEIN HYDROLYS 30 ML LIQUID.PKT PO SCH ×2 (09:35→18:18)
[2019-02-22] MEDS: D5-1/2NS+20 MEQ KCL - 20 MEQ/1,000 ML INFUS.BAG IV SCH (11:52)
--- NOTE | 2019-02-22 18:03 | PN ---
Progress Note, Physician History of Present Illness: Pt seen and examined. Events noted, labs/imaging results reviewed. Pt states she is feeling well, without significant abdominal pain, remains afebrile. Started on regular diet. No specific complaints. - Current Medication List Current Medications: Active Medications Acetaminophen (Tylenol -) 650 mg PO Q6H PRN PRN Reason: PAIN LEVEL 1-5 Albuterol Sulfate (Ventolin 0.083% Nebulizer Soln -) 1 amp NEB Q6H PRN PRN Reason: SHORT OF BREATH/WHEEZING Amino Acids (Prosource No Carb Liquid Pkt) 30 ml PO BID@0800,1730 [facility] Last Admin: 02/22/19 09:35 Dose: 30 ml Bisacodyl (Dulcolax Suppository -) 10 mg RC DAILY PRN PRN Reason: CONSTIPATION Diphenhydramine HCl (Benadryl -) 50 mg PO HS PRN PRN Reason: INSOMNIA Docusate Sodium (Colace -) 100 mg PO TID [facility] Last Admin: 02/22/19 17:13 Dose: Not Given Meropenem 1 gm/ Dextrose 100 mls @ 200 mls/hr IVPB Q8H-IV [facility] Last Admin: 02/22/19 09:34 Dose: 200 mls/hr Potassium Chloride/Dextrose/Sod Cl (D5-1/2ns+20 Meq Kcl -) 20 meq in 1,000 mls @ 83 mls/hr IV ASDIR [facility] Last Admin: 02/22/19 11:52 Dose: 83 mls/hr Ibuprofen (Motrin -) 600 mg PO Q6H PRN PRN Reason: PAIN LEVEL 1-5 Morphine Sulfate (Morphine Sulfate) 2 mg IVPUSH ONCE PRN PRN Reason: PAIN LEVEL 7 - 10 Ondansetron HCl (Zofran Injection) 4 mg IVPUSH Q4H PRN PRN Reason: NAUSEA AND/OR VOMITING Last Admin: 02/18/19 15:14 Dose: 4 mg Senna (Senna -) 2 tab PO HS PRN PRN Reason: CONSTIPATION - Objective Vital Signs: Vital Signs Temperature 98.3 F 02/22/19 10:00 Pulse Rate 96 H 02/22/19 10:00 Respiratory Rate 18 02/22/19 10:00 Blood Pressure 148/74 02/22/19 10:00 O2 Sat by Pulse Oximetry (%) 98 02/22/19 09:00 Constitutional: Yes: No Distress, Calm Cardiovascular: Yes: Regular Rate and Rhythm Respiratory: Yes: Regular Gastrointestinal: Yes: Normal Bowel Sounds, Soft, Other (colostomy) Genitourinary: Yes: WNL Integumentary: Yes: WNL Neurological: Yes: Alert, Oriented Labs: CBC, BMP 02/22/19 05:45 02/22/19 05:45 INR, PTT INR 1.10 (0.83-1.09) H 02/17/19 12:12 - ....Imaging Cat Scan: Report Reviewed Problem List - Problems (1) Asthma Code(s): J45.909 - UNSPECIFIED ASTHMA, UNCOMPLICATED Qualifiers: Asthma severity: mild Asthma persistence: intermittent Asthma complication type: uncomplicated Qualified Code(s): J45.20 - Mild intermittent asthma, uncomplicated (2) Diverticulosis Code(s): K57.90 - DVRTCLOS OF INTEST, PART UNSP, W/O PERF OR ABSCESS W/O BLEED (3) Intra-abdominal free air of unknown etiology Code(s): K66.8 - OTHER SPECIFIED DISORDERS OF PERITONEUM (4) Leukocytosis Code(s): D72.829 - ELEVATED WHITE BLOOD CELL COUNT, UNSPECIFIED Qualifiers: Leukocytosis type: bandemia Qualified Code(s): D72.825 - Bandemia Assessment/Plan -- Pt doing well -- If tolerating regular diet will switch to Levaquin/Flagyl po and treat for 1 more wk -- Surgical follow up continue monitor
[2019-02-23] MEDS ORDERED: MEROPENEM 1 GM VIAL (RESTRICTED TO ID) IVPB ONE ×2 (02:03→09:47)
[2019-02-23] MEDS ORDERED: DEXTROSE 5%-WATER 100 ML IVPB ONE ×2 (02:04→09:47)
[2019-02-23] MEDS: MEROPENEM 1 GM in DEXTROSE 5%-WATER 100 ML IVPB SCH ×2 (02:10→10:46)
[2019-02-23] MEDS: D5-1/2NS+20 MEQ KCL - 20 MEQ/1,000 ML INFUS.BAG IV SCH ×2 (02:11→10:44)
[2019-02-23] MEDS: DOCUSATE SODIUM 100 MG CAPSULE (FP) PO SCH (05:22)
--- NOTE | 2019-02-23 05:47 | DS ---
Physical Examination Vital Signs: Vital Signs Temperature 98.4 F 02/23/19 02:35 Pulse Rate 85 02/23/19 02:35 Respiratory Rate 20 02/23/19 02:35 Blood Pressure 119/72 02/23/19 02:35 O2 Sat by Pulse Oximetry (%) 99 02/22/19 21:00 Findings/Remarks: stable, colostomy functional. feeling much better Constitutional: Yes: Well Nourished, No Distress, Calm Eyes: Yes: Conjunctiva Clear, EOM Intact HENT: Yes: Atraumatic, Normocephalic Neck: Yes: Supple, Trachea Midline Cardiovascular: Yes: Regular Rate and Rhythm, S1, S2 Respiratory: Yes: Regular, CTA Bilaterally Gastrointestinal: Yes: Normal Bowel Sounds, Soft, Other (functional and viable colostomy) ...Rectal Exam: Yes: Deferred Renal/: No: CVA Tenderness - Left, CVA Tenderness - Right Musculoskeletal: No: Muscle Pain, Muscle Weakness Extremities: No: Amputation, Cool, Cyanosis Edema: No Peripheral Pulses WNL: Yes Peripheral Pulses: Left Radial: 2+, Right Radial: 2+, Left Doralis Pedis: 2+, Right Dorsalis Pedis: 2+, Left Femoral: 2+, Right Femoral: 2+ Wound/Incision: Yes: Clean/Dry, Well Approximated, [place] Intact Neurological: Yes: Alert, Oriented Psychiatric: Yes: Alert, Oriented Labs: CBC, BMP 02/22/19 05:45 02/22/19 05:45 Discharge Summary Reason For Visit: PERFORATED BOWEL Current Active Problems Abdominal pain in female (Acute) Asthma (Acute) Bowel perforation (Acute) Diverticulosis (Acute) Intra-abdominal free air of unknown etiology (Acute) Leukocytosis (Acute) Procedures: Principal: Hartmanns procedure Hospital Course: admitted with surgical abdoman and peritonitis, uneventful surgical procedure, stable for discharge home. Condition: Improved - Instructions Diet, Activity, Other Instructions: Postoperative instructions: You had a Nasreen Procedure on 02/17/[address] Carlos Paige of [facility]. Activity: Resume your usual activities gradually, but no heavy exertion or lifting more than 10-15 pounds for 4-6 weeks. You may shower daily starting then , just pat the incision areas dry. No bath or swimming until skin incisions have healed. [place] will need to be removed in clinic. Eat lightly at first, but advance to your usual diet as tolerated. Pain: For pain, you may use and alternate Tylenol (acetaminophen) 1-2 pills and/ or ibuprofen 200 mg (1-3 pills) every 6 hours each as needed; this means that you can take one OR the other at 3-hour intervals. If you are prescribed a Tylenol/narcotic combination for severe pain, use it instead of plain Tylenol as needed and switch back when your pain starts decreasing. Do not take more than 4000 mg of acetaminophen in a day. Take medications as prescribed or indicated on the labeling. Follow-up: Call Dr. Paige' office at [phone] to make your postop appointment (Sunday in approximately 2 weeks after surgery as advised). Clinic is held in the [facility] on the first floor of [facility]. Call the office if you have: * increasing pain not responsive to pain medication * fever of 101F or higher * vomiting * unusual or increasing bleeding or drainage from wounds * increasing redness or swelling at wound sites * inability to urinate Also, see your primary medical doctor within 1-2 weeks. Disposition: HOME - Home Medications Comprehensive Discharge Medication List: Ambulatory Orders Fluticasone/Vilanterol [Breo Ellipta 100-25 Mcg INH] 100 mcg DAILY 11/21/18 Sumatriptan Succinate [Imitrex -] 25 mg PO DAILY 11/21/18 Amox-Tr/K Cl [Augmentin - 875Mg Tablet] 1 tab PO BID #14 tablet 02/22/19 Oxycodone HCl/Acetaminophen [Percocet 5/325 -] 1 tab PO Q6H 5 Days #40 tab MDD 5 02/22/19
[2019-02-23] MEDS: AMINO ACIDS/PROTEIN HYDROLYS 30 ML LIQUID.PKT PO SCH (10:46)
[2019-02-23 12:22] VITALS: BP 120/70; PULSE 78; TEMP 98.8
== END 2019-02-23 13:53 | disposition home or self-care (01) | DRG 329 ==
LOC: FER 03:26 → JSAMEDAYSX 10:19 → J8W 18:21
PROC: 0D1N0Z4 Bypass Sigmoid Colon to Cutaneous, Open Approach (ICD-10-PCS; 2019-02-17)
PROC: 0DTN0ZZ Resection of Sigmoid Colon, Open Approach (ICD-10-PCS; principal; 2019-02-17 13:30)
DX: K63.1 Perforation of intestine (nontraumatic) (principal); K65.9 Peritonitis, unspecified; J45.909 Unspecified asthma, uncomplicated; D72.829 Elevated white blood cell count, unspecified; K57.90 Diverticulosis of intestine, part unspecified, without perforation or abscess without bleeding
CPT/HCPCS: 36415; 74177-TC; 80053; 81003; 81015; 85025; 85027; 85610; 86850; 86900; 86901; 88307-TC; 93005; 94760; 97116-GP; 97161-GP; 99282-25; J0131; J7030

== ENCOUNTER 2019-08-04 06:53 | Inpatient (IN) | payer OTHER ==
[2019-07-30 18:55] VITALS: BMI 18.6
[2019-08-04] MEDS ORDERED: ALVIMOPAN 12 MG CAP PO ONE (08:15)
[2019-08-04] MEDS ORDERED: ERTAPENEM SODIUM 1 GM in SODIUM CHLORIDE 50 ML IVPB ONE (08:15)
[2019-08-04] MEDS ORDERED: ERTAPENEM SODIUM 1 GM VIAL ONE (08:59)
--- NOTE | 2019-08-04 09:07 | HP ---
History & Physical Update - History History: No Change - Physical Physical: No Change - Assessment Assessment: No Change - Plan Plan: No Change (no change since visit on 07/29/[address] Foss)
[2019-08-04] MEDS ORDERED: BENZOIN TINCTURE SWABSTICK TP ONE (09:25)
[2019-08-04] MEDS ORDERED: BUPIVACAINE LIPOSOME/PF (EXPAREL) 266 MG/20 ML VIAL ONE (09:32)
[2019-08-04] MEDS ORDERED: SCOPOLAMINE HYDROBROMIDE 1 PATCH PATCH.TD72 ONE (09:33)
[2019-08-04] MEDS ORDERED: BUPIVACAINE HCL/EPINEPHRINE/PF 30 ML VIAL IJ ONE (09:33)
[2019-08-04] MEDS ORDERED: DEXMEDETOMIDINE HCL 200 MCG/2 ML IVPB ONE (09:33)
[2019-08-04] MEDS ORDERED: MIDAZOLAM HCL 2 MG/2 ML SINGLE DOSE VIAL ONE ×2 (09:35)
[2019-08-04] MEDS ORDERED: PROPOFOL 20 ML ONE (10:13)
[2019-08-04] MEDS ORDERED: ROCURONIUM BROMIDE 50 MG/5 ML SYRINGE ONE ×2 (10:13→12:13)
[2019-08-04] MEDS ORDERED: CLINDAMYCIN 600 MG PREMIX BAG IVPB ONE (10:25)
[2019-08-04] MEDS ORDERED: NEOSTIGMINE METHYLSULFATE 0.5 MG/ML - 10 ML MDV ONE (13:55)
[2019-08-04] MEDS ORDERED: ACETAMINOPHEN 325 MG TABLET (FP) PO PRN (15:05)
[2019-08-04] MEDS ORDERED: ONDANSETRON 4 MG/2 ML VIAL IVPUSH PRN (15:07)
[2019-08-04] MEDS ORDERED: SUMAtriptan SUCCINATE 25 MG TABLET PO PRN (15:07)
[2019-08-04] MEDS ORDERED: DEXAMETHASONE SOD PHOSPHATE 4 MG/1 ML VIAL IVPUSH PRN (15:07)
[2019-08-04] MEDS ORDERED: LACTATED RINGERS SOLUTION 1,000 ML/1,000 ML INFUS.BAG IV SCH (15:15)
[2019-08-04] MEDS ORDERED: HYDROmorphone *PCA* 10MG/50ML DISP.SYRIN PCA SCH (15:15)
--- NOTE | 2019-08-04 15:20 | OP ---
Operative Note - Note: Operative Date: 08/04/19 Pre-Operative Diagnosis: s/p hartmans procedure Operation: ridgid sigmoidoscope, reversal of hartmans procedure. Post-Operative Diagnosis: Same as Pre-op Surgeon: Killian Foss Forms Analyst: Jacquelyn Berry Anesthesiologist/SALES CONTRACTOR: Jordan Higgins Anesthesia: General, Local (tap block) Specimens Removed: colostomy stump Estimated Blood Loss (mls): 100 Drains, Volume Out (mls): 400 (gupta) Fluid Volume Replaced (mls): 1,800 Operative Report Dictated: Yes
--- NOTE | 2019-08-04 15:22 | SURG ---
Surgery Academic Intern Note Academic Intern: Jacquelyn Berry PA-C Date of Service: 08/04/19 Diagnosis: s/p hartmans procedure Procedure: ridgid sigmoidoscope, reversal of hartmans procedure. I was present for the entirety of the operative procedure. For further detail, please refer to operative report. Visit type - Case Type Case Type: Scheduled - Emergency Emergency Visit: No - New patient This patient is new to me today: Yes Date on this admission: 08/04/19
[2019-08-04] MEDS ORDERED: ACETAMINOPHEN INJECTION 100 ML IVPB ONE (15:36)
[2019-08-04] MEDS ORDERED: HYDROmorphone *PCA* 10MG/50ML DISP.SYRIN ONE (15:40)
[2019-08-04] MEDS ORDERED: ACETAMINOPHEN 1000 MG/100 ML VIAL (NON FORMULARY) IVPB ONE (15:45)
[2019-08-04] MEDS ORDERED: HYDROmorphone *PCA* 10MG/50ML DISP.SYRIN PCA ONE (16:00)
[2019-08-04] MEDS ORDERED: ONDANSETRON 4 MG/2 ML VIAL ONE (16:23)
[2019-08-04] MEDS ORDERED: ONDANSETRON 4 MG/2 ML VIAL IVPUSH ONE (16:30)
[2019-08-04] MEDS ORDERED: DEXAMETHASONE SOD PHOSPHATE 4 MG/1 ML VIAL ONE (16:43)
[2019-08-04] MEDS ORDERED: DEXAMETHASONE SOD PHOSPHATE 4 MG/1 ML VIAL IVPUSH ONE (16:45)
[2019-08-04] MEDS ORDERED: HEPARIN NA (PORCINE) 5,000 UNITS/ML 1ML VIAL SQ SCH (18:00)
[2019-08-04] MEDS: DOCUSATE SODIUM 100 MG CAPSULE (FP) PO SCH (22:48)
[2019-08-04] MEDS: LACTATED RINGERS SOLUTION 1,000 ML IV SCH ×2 (23:45)
[2019-08-05] MEDS: DOCUSATE SODIUM 100 MG CAPSULE (FP) PO SCH (05:51)
[2019-08-05] MEDS: HEPARIN NA (PORCINE) 5,000 UNITS/ML 1ML VIAL SQ SCH ×3 (06:33→22:31)
[2019-08-05] MEDS: ACETAMINOPHEN 1000 MG/100 ML VIAL (NON FORMULARY) IVPB PRN ×2 (08:00→16:17)
[2019-08-05] MEDS: LACTATED RINGERS SOLUTION 1,000 ML IV SCH ×2 (08:03→16:15)
[2019-08-05] MEDS ORDERED: ALBUTEROL SO4 8 GM HFA INHALER IH PRN (08:31)
[2019-08-05] MEDS ORDERED: PT OWN MED DRAWER 7, Y5N ONE ×2 (10:22→21:06)
[2019-08-05] MEDS: ALVIMOPAN 12 MG CAP PO SCH ×2 (10:26→21:23)
--- NOTE | 2019-08-05 11:50 | PN ---
Progress Note (short form) - Note Progress Note: POD#1 Pt seen earlier today and had complaints of nausea/emesis. Pain better controlled when reexamined in later morning. She wasn't pressing the TRADE MANAGER button as frequently as could have. Also, pt instructed on use of TRADE MANAGER and given tylenol IV dose. Vital Signs Period Temp Pulse Resp BP Sys/Lombardi Pulse Ox Last 24 Hr 97.3 F-98 F 56-109 13-23 105-142/60-84 96-100 ODUGLAS: outpt not documented, serosangrenous drainage UOP:650 clear/yellow urine GEN: A&0x3, NAD CV: RRR Lungs: CTA b/l ABD: soft, midline dressing changed. Inc c/d/i, vinod intact without drainage. Mild ecchymosis to incision. Ostomy site: dressing changed and wound clean. LE: no calf tenderness or swelling noted b/l. SCDs in place A/p: 53 yo female s/p hartmans closure, POD#1 continue npo/IVF Check cbc/chem Continue IV hydration IV antiemetics as needed for nausea OOB to chair/remove gupta after OOB TRADE MANAGER for pain medications DVT ppx with heparin SQ Pt seen with Dr. Foss today
[2019-08-05 13:36] LABS: BASO % 0.3 % (0-2.0); HEMATOCRIT 36.3 % (32.4-45.2); HEMOGLOBIN 11.9 GM/dL (10.7-15.3); LYMPH % 6.5 % (8-40); MCH 28.2 pg (25.7-33.7); MCHC 32.9 g/dl (32.0-36.0); MEAN CELL VOLUME 85.6 fl (80-96); MONO % 6.8 % (3.8-10.2); NEUT % 86.4 % (42.8-82.8); PLATELET COUNT 148 K/MM3 (134-434); RBC 4.24 M/mm3 (3.60-5.2); RDW 14.1 % (11.6-15.6); WHITE BLOOD COUNT 12.2 K/mm3 (4.0-10.0)
[2019-08-05 14:06] LABS: BLOOD UREA NITROGEN 9.9 mg/dL (7-18); CALCIUM 8.5 mg/dL (8.5-10.1); CREATININE 0.6 mg/dL (0.55-1.3); POTASSIUM 4.5 mmol/L (3.5-5.1)
--- NOTE | 2019-08-05 14:53 | PN ---
Progress Note (short form) - Note Progress Note: POD #1 s/p reversal of colostomy under GETA with bilateral QL blocks. 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 Patient is receiving zofran for nausea treatment and is on scheduled IV Acetaminophen. Recommend addition of ketorolac 30mg IV q6hr in addition to IV acetaminophen to mitigate opioid use. Would also recommend additional antiemetic such as phenergan for rescue.
[2019-08-05] MEDS ORDERED: PROMETHAZINE HCL 25 MG/1 ML VIAL IVPB PRN (17:08)
--- NOTE | 2019-08-05 17:10 | PN ---
Progress Note (short form) - Note Progress Note: called by floor for persistent N/V s/p hartmans reversal. surgery is aware. will cont non narcotic pain meds. pt instructed to use narcotics sparingly. will add phenergan to anti emetic regimen.
[2019-08-06] MEDS: HEPARIN NA (PORCINE) 5,000 UNITS/ML 1ML VIAL SQ SCH ×3 (06:20→21:24)
[2019-08-06 08:29] LABS: BASO % 0.1 % (0-2.0); HEMATOCRIT 37.1 % (32.4-45.2); HEMOGLOBIN 12.4 GM/dL (10.7-15.3); LYMPH % 5.7 % (8-40); MCH 28.4 pg (25.7-33.7); MCHC 33.3 g/dl (32.0-36.0); MEAN CELL VOLUME 85.2 fl (80-96); MEAN PLT VOLUME 9.9 fl (7.5-11.1); MONO % 6.1 % (3.8-10.2); NEUT % 88.1 % (42.8-82.8); PLATELET COUNT 140 K/MM3 (134-434); RBC 4.36 M/mm3 (3.60-5.2); WHITE BLOOD COUNT 9.8 K/mm3 (4.0-10.0)
[2019-08-06 08:42] LABS: BLOOD UREA NITROGEN 9.6 mg/dL (7-18); CALCIUM 8.6 mg/dL (8.5-10.1); CREATININE 0.6 mg/dL (0.55-1.3); POTASSIUM 3.8 mmol/L (3.5-5.1)
--- NOTE | 2019-08-06 10:03 | PN ---
Progress Note (short form) - Note Progress Note: POD#2, s/p ridgid sigmoidoscope, reversal of hartmans procedure. Pt seen and examined. Reports nausea and vomiting overnight. Reports 1 episode emesis overnight (dark brown). Has been oob to the restroom. Voiding without issue. Denies cp/sob, n/v/d. No flatus yet. Vital Signs Temp 99.1 F 08/06/19 07:37 Pulse 101 H 08/06/19 07:37 Resp 20 08/06/19 07:37 BP 143/79 08/06/19 07:37 Pulse Ox 98 08/06/19 04:00 Intake & Output 08/05/19 08/05/19 08/06/19 11:59 23:59 11:59 Intake Total 2125 1000 Output Total 2230 960 Balance -105 40 Intake: IV 1875 1000 Lactated Ringers Solution 1875 1000 1,000 ml @ 125 mls/hr IV ASDIR MARIN Rx#: [id number] IVPB 250 Output: Drainage 30 30 Right Lower Abdomen 30 30 Urine 2100 930 Gupta 1600 Void 500 930 Emesis 100 Other: Voiding Method Indwelling Catheter Toilet # Unmeasured Voids Void 1 2 Bowel Movement No No CBC, BMP 08/06/19 06:28 08/06/19 06:28 GEN: A&0x3, NAD CV: RRR Lungs: CTA b/l ABD: soft, midline dressing changed. Inc c/d/i, vinod intact without drainage. Mild ecchymosis to incision. Ostomy site: dressing changed and wound clean. DOUGLAS in place with scant serosanguinous drainage in reservoir. Tubing stripped. LE: no calf tenderness or swelling noted b/l. SCDs in place A/p: 53 yo female w/ PMHx 53 yo female PMHx Asthma, diverticulosis and chronic constipation s/p stercoral erosion/end colostomy, now POD#2, s/p ridgid sigmoidoscope, reversal of hartmans procedure. Afebrile, slightly tachy likely due to pain Labs stable DOUGLAS output 30ml overnight continue npo/IVF Check cbc/chem Continue IV hydration IV antiemetics as needed for nausea OOB to chair/remove gupta after OOB LIVESTOCK HAULIER d/c'ed, Ibuprofen 600mg q8hrs sched, [id number] q6hrs DVT ppx with heparin SQ d/w attending Dr Foss
[2019-08-06] MEDS: LACTATED RINGERS SOLUTION 1,000 ML IV SCH ×2 (10:14→15:17)
[2019-08-06] MEDS: ALVIMOPAN 12 MG CAP PO SCH ×2 (10:15→21:23)
[2019-08-06] MEDS: ACETAMINOPHEN 1000 MG/100 ML VIAL (NON FORMULARY) IVPB PRN (10:29)
[2019-08-06] MEDS: FAMOTIDINE 20 MG/50 ML IVPB 20 MG/50 ML MG IVPB SCH ×2 (11:51→21:24)
[2019-08-06] MEDS: IBUPROFEN 800 MG/8 ML IJ IVPB SCH ×2 (12:32→17:38)
--- NOTE | 2019-08-06 13:24 | PN ---
Progress Note (short form) - Note Progress Note: Anesthesia/postop pain management follow up 53 y/o F was on FIELD STAFF MANAGER until yesterday afternoon. FIELD STAFF MANAGER discontinued due to nausea. Pain well controlled with non narcotic regimen.
--- NOTE | 2019-08-06 17:04 | PATH ---
Surgical Pathology Report Patient Name: MARTA BROWN Med. Rec. #: [id number] /Age/Gender: 1965 (Age: 53) / F Account: [id number] Location: [facility] MED/SURG Taken: 08/04/2019 Received: 08/05/2019 Reported: 08/06/2019 Physicians: Killian Foss MD Specimen(s) Received OLD COLOSTOMY Clinical History Status post Harding procedure Final Diagnosis OLD COLOSTOMY, EXCISION: PORTION OF COLON AND SKIN WITH FOCAL MILD CHRONIC INFLAMMATION, CONSISTENT WITH COLOSTOMY. Electronically Signed Wilma Calderon M.D. Gross Description Received in formalin labeled "old colostomy," is a 3.0 x 1.4 cm marie, elliptical, unoriented portion of skin with a central os, consistent with a colostomy. The skin displays an attached 5.5 cm in length portion of bowel with an open mucosal margin. The bowel mucosa is marie with normal folds. No lesions are identified. Cranberry Grower sections are submitted in 2 cassettes as follows: 1-open bowel mucosal margin; 2-section from colostomy site. /[facility]
[2019-08-07] MEDS: IBUPROFEN 800 MG/8 ML IJ IVPB SCH ×3 (02:10→18:14)
[2019-08-07] MEDS: LACTATED RINGERS SOLUTION 1,000 ML IV SCH ×2 (03:45→14:23)
[2019-08-07] MEDS: HEPARIN NA (PORCINE) 5,000 UNITS/ML 1ML VIAL SQ SCH ×3 (06:15→21:41)
--- NOTE | 2019-08-07 08:06 | PN ---
Progress Note (short form) - Note Progress Note: POD#3, s/p ridgid sigmoidoscope, reversal of hartmans procedure. Pt seen and examined. States she feels significantly better this AM. Nausea and vomiting has resolved. Has been oob to the restroom. Passed flatus this morning. Voiding without issue. Denies cp/sob, n/v/d. Vital Signs Temp 98.7 F 08/07/19 06:41 Pulse 70 08/07/19 06:41 Resp 20 08/07/19 06:41 BP 133/74 08/07/19 06:41 Pulse Ox 97 08/06/19 21:00 Intake & Output 08/06/19 08/06/19 08/07/19 11:59 23:59 11:59 Intake Total 1000 1850 Output Total 960 730 20 Balance 40 1120 -20 Weight 112 lb Intake: IV 1000 1700 Lactated Ringers Solution 1000 1700 1,000 ml @ 125 mls/hr IV ASDIR MARIN Rx#: [id number] IVPB 150 Output: Drainage 30 30 20 Right Lower Abdomen 30 30 20 Urine 930 700 Void 930 700 Other: Voiding Method Toilet Toilet # Unmeasured Voids Void 2 2 Bowel Movement No Height 5 ft 5 in Body Mass Index (BMI) 18.6 CBC, BMP 08/06/19 06:28 GEN: A&0x3, NAD CV: RRR Lungs: CTA b/l ABD: soft, midline dressing changed. Inc c/d/i, vinod intact without drainage. Mild ecchymosis to incision. Ostomy site: dressing changed and wound clean. Repacked with Iodoform packing. DOUGLAS in place with scant serosanguinous drainage in reservoir. Tubing stripped. LE: no calf tenderness or swelling noted b/l. SCDs in place A/p: 53 yo female PMHx Asthma, diverticulosis and chronic constipation s/p stercoral erosion/end colostomy, now POD#3, s/p ridgid sigmoidoscope, reversal of hartmans procedure. Afebrile, VSS Morning cmp pending DOUGLAS output 20ml overnight Passed flatus Advance to clears this AM KDUR ordered for this AM Continue IV hydration IV antiemetics as needed for nausea OOB to chair/remove gupta after OOB Ibuprofen 600mg q8hrs sched, [id number] q6hrs DVT ppx with heparin SQ VNS pending d/w attending Dr Foss
[2019-08-07 08:25] LABS: ALBUMIN 2.8 g/dl (3.4-5.0); BILIRUBIN,TOTAL 1.1 mg/dL (0.2-1); BLOOD UREA NITROGEN 13.9 mg/dL (7-18); CALCIUM 8.3 mg/dL (8.5-10.1); CREATININE 0.6 mg/dL (0.55-1.3); POTASSIUM 3.4 mmol/L (3.5-5.1); TOT PROT 5.6 g/dl (6.4-8.2)
[2019-08-07] MEDS ORDERED: PT OWN MED DRAWER 7, Y5N ONE (09:53)
[2019-08-07] MEDS: FAMOTIDINE 20 MG/50 ML IVPB 20 MG/50 ML MG IVPB SCH ×2 (09:56→21:40)
[2019-08-07] MEDS: ALVIMOPAN 12 MG CAP PO SCH (09:56)
[2019-08-07] MEDS ORDERED: KCL 10 MEQ IVPB 10 MEQ/100 ML INFUS.BAG IVPB SCH (11:00)
--- NOTE | 2019-08-07 11:41 | OP ---
DATE OF OPERATION: 08/04/2019 PREOPERATIVE DIAGNOSIS: Status post Nasreen procedure for a perforated stercoral ulcer of the rectosigmoid. POSTOPERATIVE DIAGNOSIS: Status post Nasreen procedure for a perforated stercoral ulcer of the rectosigmoid. PROCEDURE: Rigid sigmoidoscopy and reversal of Nasreen procedure (colocolostomy). SURGEON: Killian Foss MD YARN INSPECTOR: MARILU Hawkins ANESTHESIA: General with TAP block. OPERATIVE FINDINGS: There were adhesions from previous surgery. The rest of the intra-abdominal findings were unremarkable. DESCRIPTION OF PROCEDURE: The patient was placed on the operating room table in the supine position, and after the induction of general anesthesia and the placement of a Noriega catheter and sequential compression devices on the patient's lower extremities, she was placed in the dorsal lithotomy position on appropriately padded Nilesh stirrups. A time-out was taken, and rigid sigmoidoscopy was carried out to approximately 15 cm from the anal verge with unremarkable findings except for residual mucus material. Next, the abdomen, pelvis, and perineum were prepped with ChloraPrep and draped in sterile fashion. A time-out was taken again and then the peritoneal cavity was entered through the previous midline incision. The previously noted findings were observed, and adhesions were taken down using a combination of blunt and sharp dissection and electrocautery. The rectal stump was identified in the pelvis as evidenced by the Prolene sutures that were placed on it at the time of the previous surgery. The rectal stump was larger than what could be visualized during the rigid proctosigmoidoscopy. The colostomy was taken down by incising the skin around it in an elliptical fashion and bringing it through the abdominal wall. Next, a point of excision of the old colostomy stump was identified proximal to it where there was normal, healthy proximal sigmoid colon. A window was made in the mesentery and then the pursestring suture device was fired across the bowel. The old colostomy site was excised and sent for pathologic examination. The mesentery was divided appropriately up to the pursestring device using the LigaSure. Minimal mobilization of the colon was carried out proximally along the White line of Toldt using blunt and sharp dissection to assure maximum length for the anastomosis with no tension. At this point, the pursestring suture device was removed and the proximal colon was sized with the EA sizers to a 25-mm sizer. Next, a 25-mm EEA circular stapling device was placed through the rectum and brought through. It could not be brought all the way to the end of the suture line of the stump because of pelvic anatomy; however, an adequate spot on the anterior stump was identified and the stapler probe advanced. This was placed into the anvil of the proximal colon and the 2 segments brought together without tension until the green line on the circular stapling device was identified. Again, it was assured that no extraneous tissue was within the staple line and then the stapler fired. The stapler was then next withdrawn through the anastomosis and rectum and on a back table, the stapler was opened, and 2 complete circular donuts were identified, 1 proximal and 1 distal, which were sent for pathologic examination. Next, the pelvis was filled with normal saline and a bulb syringe with air was placed within the rectum and the proximal colon occluded and air insufflated without evidence of bubbling in the saline indicative of an adequate anastomosis without a clinical leak. Next, the saline was suctioned out, and again, copious irrigation carried out, and hemostasis checked for and noted to be good. Next, the colostomy site was closed with a single figure of eight 9 Prolene suture from the peritoneal aspect and then anteriorly the defect in the abdominal wall was closed with two 0 Prolene [id number] sutures. The midline incision was then closed using continuous 0 loop Maxon and the subcutaneous tissue irrigated and the skin edges reapproximated with proximal vinod. Prior to this, a 10-mm Ron-Cast drain was placed in the pelvis and brought out through a separate stab wound in the right side of the abdominal wound where the drain was anchored to the skin with 2-0 silk suture and then connected to bulb self-suction. The colostomy site was irrigated and packed with 1-inch iodoform gauze and all wounds dressed with 4 x 4 gauze and Medipore tape. Patient was taken out of the lithotomy position and the procedure terminated at this point and the patient aroused from general anesthesia and transferred to the post anesthesia care unit in stable condition awake and alert. ESTIMATED BLOOD LOSS: 100 mL. REPLACEMENTS: Crystalloid 1800 mL. URINE VOLUME OUT: 400 mL. SPECIMEN: Colostomy stump and colonic donuts. Killian Coyle, was physically present in the operating room from the time the patient was placed on the operating room table until she was transferred to the post anesthesia care unit in [facility]. MD CHRISTOPH Chiu/[id number]
[2019-08-07] MEDS: BUDESONIDE/FORMETEROL FUMARATE 80/4.5 mcg INHALER IH SCH ×2 (14:32→21:41)
[2019-08-08] MEDS: IBUPROFEN 800 MG/8 ML IJ IVPB SCH ×3 (02:00→18:16)
[2019-08-08] MEDS: HEPARIN NA (PORCINE) 5,000 UNITS/ML 1ML VIAL SQ SCH ×3 (05:20→21:31)
--- NOTE | 2019-08-08 08:36 | PN ---
Progress Note (short form) - Note Progress Note: POD#4, s/p ridgid sigmoidoscope, reversal of hartmans procedure. Pt seen and examined. States she feels significantly better this AM. Nausea and vomiting has resolved. She Has been oob to the restroom and moved her bowels this morning. Patient is Voiding without issue. Denies cp/sob, n/v/d. 2 Vital Signs Temp 97.9 F 08/08/19 07:00 Pulse 67 08/08/19 07:00 Resp 18 08/08/19 07:00 BP 122/71 08/08/19 07:00 Pulse Ox 97 08/06/19 21:00 Intake & Output 08/07/19 08/07/19 08/08/19 11:59 23:59 11:59 Intake Total 100 1476 835 Output Total 20 20 50 Balance 80 1456 785 Intake: IV 976 685 Lactated Ringers Solution 976 685 1,000 ml @ 125 mls/hr IV ASDIR MARIN Rx#: [id number] IVPB 100 100 150 Oral 400 Output: Drainage 20 20 50 Right Lower Abdomen 20 20 50 Other: Voiding Method Toilet Toilet # Unmeasured Voids Void 2 2 Bowel Movement No No # Bowel Movements 1 GEN: A&0x3, NAD Unlabored resp on RA ABD: soft, midline dressing changed. Inc c/d/i, vinod intact without drainage. Mild ecchymosis to incision. Ostomy site: dressing changed and wound clean. Repacked with Iodoform packing. DOUGLAS drain removed with tip fully intact. drain site clean and dry with no active d/c. LE: no calf tenderness or swelling noted b/l. SCDs in place Problem List - Problems (1) Bowel perforation Assessment/Plan: A/p: 53 yo female PMHx Asthma, diverticulosis and chronic constipation s/p stercoral erosion/end colostomy, now POD#4, s/p ridgid sigmoidoscope, reversal of hartmans procedure. Afebrile, VSS Morning cmp pending having BM Tolerating clears Advance to regular this AM Continue IV hydration OOB as tolerated DVT ppx with heparin SQ VNS pending for d/c home tomorrow if tolerating diet. VNS to irrigate wound with NS and pack ostomy wound @ 5x3cm with 1/2" iodoform packing, cover with clean dry dressing. Keep vinod clean and dry, cover with clean dry dressing PRN. d/w attending Dr Foss Code(s): K63.1 - PERFORATION OF INTESTINE (NONTRAUMATIC)
[2019-08-08 08:37] LABS: BLOOD UREA NITROGEN 9.5 mg/dL (7-18); CALCIUM 8.3 mg/dL (8.5-10.1); CREATININE 0.6 mg/dL (0.55-1.3); POTASSIUM 3.3 mmol/L (3.5-5.1); TOT PROT 5.9 g/dl (6.4-8.2)
[2019-08-08] MEDS: LACTATED RINGERS SOLUTION 1,000 ML IV SCH (10:31)
[2019-08-08] MEDS: FAMOTIDINE 20 MG/50 ML IVPB 20 MG/50 ML MG IVPB SCH ×2 (10:31→21:31)
[2019-08-08] MEDS: BUDESONIDE/FORMETEROL FUMARATE 80/4.5 mcg INHALER IH SCH ×2 (10:35→21:32)
[2019-08-08] MEDS ORDERED: POTASSIUM CHLORIDE TABS 20 MEQ TABLET.ER (FP) PO ONE (13:00)
[2019-08-08] MEDS ORDERED: LACTATED RINGERS SOLUTION 1,000 ML IV SCH (13:18)
[2019-08-09] MEDS: IBUPROFEN 800 MG/8 ML IJ IVPB SCH ×2 (01:03→09:48)
[2019-08-09] MEDS: HEPARIN NA (PORCINE) 5,000 UNITS/ML 1ML VIAL SQ SCH (06:25)
[2019-08-09 06:40] VITALS: TEMP 98.1
[2019-08-09 09:17] VITALS: BP 121/74; PULSE 80
--- NOTE | 2019-08-09 09:35 | PN ---
Progress Note (short form) - Note Progress Note: Attending Surgeon POD#5 Tolerating diet and passing flatus and having bowel movements VSS AF abdo-soft; incision c/d/i; ostomy site ok and wound care in progress; drain site dressing intact Potassium has been repleted; recheck value pending. IMP: doing well PLAN: If potassium normal may be d/c'ed to office f/u next week; she and her will be taught the wound care. Killian Foss MD FACS
[2019-08-09 09:36] LABS: BASO % 0.8 % (0-2.0); EOS % 3.2 % (0-4.5); HEMATOCRIT 35.4 % (32.4-45.2); HEMOGLOBIN 11.9 GM/dL (10.7-15.3); MCH 28.6 pg (25.7-33.7); MCHC 33.6 g/dl (32.0-36.0); MEAN CELL VOLUME 85.1 fl (80-96); MEAN PLT VOLUME 9.4 fl (7.5-11.1); MONO % 6.4 % (3.8-10.2); NEUT % 71.6 % (42.8-82.8); PLATELET COUNT 134 K/MM3 (134-434); RBC 4.16 M/mm3 (3.60-5.2); RDW 13.3 % (11.6-15.6); WHITE BLOOD COUNT 4.6 K/mm3 (4.0-10.0)
[2019-08-09 10:12] LABS: BILIRUBIN,TOTAL 0.9 mg/dL (0.2-1); BLOOD UREA NITROGEN 10.6 mg/dL (7-18); CALCIUM 8.7 mg/dL (8.5-10.1); CREATININE 0.7 mg/dL (0.55-1.3); POTASSIUM 3.5 mmol/L (3.5-5.1); TOT PROT 5.9 g/dl (6.4-8.2)
[2019-08-09] MEDS: BUDESONIDE/FORMETEROL FUMARATE 80/4.5 mcg INHALER IH SCH (11:14)
== END 2019-08-09 11:46 | disposition home or self-care (01) | DRG 346 ==
LOC: JSAMEDAYSX 06:53 → J8W 20:56
PROVIDERS: ADMIT Surgery; ATTEND Surgery
PROC: 0DSN0ZZ Reposition Sigmoid Colon, Open Approach (ICD-10-PCS; principal; 2019-08-04 10:40)
PROC: 0DJD8ZZ Inspection of Lower Intestinal Tract, Via Natural or Artificial Opening Endoscopic (ICD-10-PCS; 2019-08-04 10:40)
DX: Z43.3 Encounter for attention to colostomy (principal); D12.5 Benign neoplasm of sigmoid colon; K57.90 Diverticulosis of intestine, part unspecified, without perforation or abscess without bleeding; I34.1 Nonrheumatic mitral (valve) prolapse; K44.9 Diaphragmatic hernia without obstruction or gangrene; G43.909 Migraine, unspecified, not intractable, without status migrainosus; J45.909 Unspecified asthma, uncomplicated; K59.09 Other constipation
CPT/HCPCS: 36415; 80048; 80053; 84703; 85025; 86850; 86900; 86901; 88304-TC; 94010; 94760; J0131; J1644

== ENCOUNTER 2021-02-24 08:02 | Emergency (ER) | payer OTHER ==
[2021-02-24 08:15] VITALS: BP 128/76; PULSE 73; TEMP 98.6; BMI 20.7
[2021-02-24] MEDS ORDERED: KETOROLAC TROMETHAMINE 60 MG/2 ML VIAL IM ONE (08:28)
[2021-02-24] MEDS ORDERED: KETOROLAC TROMETHAMINE 60 MG/2 ML VIAL ONE (08:41)
[2021-02-24 09:54] LABS: PH,URINE 8.5 (5.0-8.0); URINE APPEARANCE CLEAR; URINE BILIRUBIN NEGATIVE (NEGATIVE); URINE COLOR YELLOW; URINE GLUCOSE (UA) NEGATIVE (NEGATIVE); URINE KETONE NEGATIVE (NEGATIVE); URINE LEUK ESTERASE NEGATIVE (NEGATIVE); URINE NITRITE NEGATIVE (NEGATIVE); URINE PROTEIN NEGATIVE (NEGATIVE); URINE UROBILINOGEN 0.2 mg/dL (0.2-1.0)
== END 2021-02-24 11:02 | disposition home or self-care (01) ==
LOC: JERFT 08:02
PROC: 3E0233Z Introduction of Anti-inflammatory into Muscle, Percutaneous Approach (ICD-10-PCS; principal; 2021-02-24)
DX: M54.5 Low back pain (principal)
CPT/HCPCS: 72100-TC-FY; 81003; 87086; 99284-25

== ENCOUNTER 2022-05-03 10:10 | Day surgery (SDC) | payer OTHER ==
[2022-05-03 12:37] VITALS: RESP 18
[2022-05-03 12:40] VITALS: BP 105/68; PULSE 85; TEMP 97.7
== END 2022-05-03 12:40 | disposition home or self-care (01) ==
LOC: FASU-ENDO 10:10
PROVIDERS: ATTEND Internal Medicine Gastroenterology
PROC: 0DBL8ZX Excision of Transverse Colon, Via Natural or Artificial Opening Endoscopic, Diagnostic (ICD-10-PCS; 2022-05-03)
PROC: 0DBM8ZX Excision of Descending Colon, Via Natural or Artificial Opening Endoscopic, Diagnostic (ICD-10-PCS; 2022-05-03)
PROC: 0DBK8ZX Excision of Ascending Colon, Via Natural or Artificial Opening Endoscopic, Diagnostic (ICD-10-PCS; principal; 2022-05-03 11:40)
DX: R19.7 Diarrhea, unspecified (principal); K64.1 Second degree hemorrhoids
CPT/HCPCS: 88305-TC

== ENCOUNTER 2024-02-03 07:37 | Emergency (ER) | payer OTHER ==
[2024-02-03 08:30] VITALS: BP 113/80; PULSE 83; RESP 18; TEMP 97.8; BMI 25.7
== END 2024-02-03 09:24 | disposition home or self-care (01) ==
LOC: FER 07:37
DX: S93.402A Sprain of unspecified ligament of left ankle, initial encounter (principal); X50.1XXA Overexertion from prolonged static or awkward postures, initial encounter; Y92.017 Garden or yard in single-family (private) house as the place of occurrence of the external cause
CPT/HCPCS: 73610-TC-LT-FY; 73630-TC-LT; 99283-25